=== PATIENT | male | born 1950 | race Caucasian/White ===

== ENCOUNTER 2018-01-05 10:33 | Day surgery (SDC) | payer MEDICARE, OTHER ==
[~2018-01-05 10:33] MED LIST: Lactated Ringers 1,000 ML IV SCH; Sodium Chloride 0.9% 5 ML Syringe FLUSH PRN
[2018-01-05] MEDS ORDERED: Propofol 200 MG/20 ML SDV ONE (11:08)
[2018-01-05] MEDS ORDERED: fentaNYL 100 MCG/2 ML SDV ONE (11:08)
[2018-01-05] MEDS ORDERED: Midazolam 1 MG/ML 2 ML SDV ONE (11:08)
[2018-01-05] MEDS ORDERED: Midazolam 1 MG/ML 2 ML SDV IV ONE (12:14)
[2018-01-05] MEDS ORDERED: fentaNYL 100 MCG/2 ML SDV IV ONE (12:14)
[2018-01-05] MEDS ORDERED: Propofol 200 MG/20 ML SDV IV ONE (12:14)
--- NOTE | 2018-01-05 13:02 | PCM.PRNOTE ---
- Free Text/Narrative Note: INFORMED CONSENT: Patient is here today for elective colonoscopy. All aspects of this procedure have been discussed with the patient. All possible complications also, including possibility of perforation, infection, pain, bleeding and unknown complications. In the event of perforation patient may need to have abdominal exploration, colon resection, colostomy and even was discussed. Anesthetic complications were handled by anesthesia department. The patient understands fully well. Patient did not have any further questions for me at the end of my interview. The patient wishes for me to proceed. PREOPERATIVE DIAGNOSIS/INDICATIONS: [I in the emergency anemia] POSTOPERATIVE DIAGNOSIS: [A few diverticula were seen but otherwise negative colonoscopy.] INSTRUMENT USED: Olympus videocolonoscope. ASA CLASSIFICATION: [2] ANESTHESIA: Continuous EKG, oximetry and intermittent blood pressure and respiratory monitoring were performed throughout the procedure. IV Versed and Fentanyl were administered. PROCEDURE PERFORMED: Colonoscopy POSITIONS OF PATIENT: Left lateral. RECTUM: Normal. SIGMOID COLON: A few diverticuli were seen without any complication.. DESCENDING COLON: Normal. SPLENIC FLEXURE: Normal. TRANSVERSE COLON: Normal. HEPATIC FLEXURE: Normal. ASCENDING COLON: Normal. CECUM: Normal. ILEOCECAL VALVE: Normal. BIOPSY: None. TOLERANCE: Excellent. COMPLICATIONS: None.
== END 2018-01-05 15:00 | disposition home or self-care (01) ==
LOC: KA.SDS 10:33
PROVIDERS: ATTEND Family Medicine
DX: K57.30 Diverticulosis of large intestine without perforation or abscess without bleeding (principal); D50.8 Other iron deficiency anemias; J44.9 Chronic obstructive pulmonary disease, unspecified; I10 Essential (primary) hypertension; K58.0 Irritable bowel syndrome with diarrhea; E78.2 Mixed hyperlipidemia; M19.029 Primary osteoarthritis, unspecified elbow; Z79.82 Long term (current) use of aspirin; Z79.1 Long term (current) use of non-steroidal anti-inflammatories (NSAID); Z79.899 Other long term (current) drug therapy; E03.9 Hypothyroidism, unspecified
CPT/HCPCS: 00811; J2250; J2704; J3010; J7120

== ENCOUNTER 2020-11-25 20:28 | Emergency (ER) | payer MEDICARE, OTHER ==
[2020-11-25] MEDS ORDERED: Sodium Chloride 0.9% 10 ML Syringe FLUSH PRN (20:29)
--- NOTE | 2020-11-25 20:48 | EDM.PDOC ---
ED HPI GENERAL MEDICAL PROBLEM - General Chief Complaint: Neuro Symptoms/Deficits Stated Complaint: POSSIBLE CVA Time Seen by Provider: 11/25/20 20:34 Source of Information: Reports: Patient, EMS, Family History Limitations: Reports: No Limitations - History of Present Illness INITIAL COMMENTS - FREE TEXT/NARRATIVE: 70 YO WM PRESENTS TO ER BY EMS WITH RIGHT ARM WEAKNESS WHICH BEGAN 2PM TODAY. PT REPORTS HE WAS WORKING AND BEGAN TO NOTICE SOME WEAKNESS AND INABILITY TO SUPINATE HIS RIGHT ARM. PT REPORTS HE CONTINUED TO WORK UNTIL AROUND 5PM WHEN HE STATES THE ARM WEAKNESS BECAME WORSE AND HE FELT UNSTEADY ON HIS FEET. PT DENIES ANY FACIAL WEAKNESS OR DROOP, NO SLURRED SPEECH, NO HEADACHE, NO DIZZINESS, NO CHEST PAIN OR SHORTNESS OF BREATH. PT DENIES FEVER/CHILLS, NO RECENT ILLNESSES. PT ALERT AND ORIENTED X 4; GCS-15. PT DENIES HEAD OR NECK INJURY. Onset: Today Onset Date: 11/25/20 Onset Time: 14:00 Duration: Hour(s): (6) Location: Reports: Upper Extremity, Right Severity: Moderate Improves with: Reports: None Worsens with: Reports: None Associated Symptoms: Reports: No Other Symptoms, Weakness. Denies: Confusion, Chest Pain, Diaphoresis, Fever/Chills, Headaches, Nausea/Vomiting, Shortness of Breath, Syncope - Related Data Allergies Allergy/AdvReac Type Severity Reaction Status Date / Time No Known Drug Allergies Allergy Cannot Verified 11/25/20 20:51 Remember Home Meds: Home Meds *Aloe Vera Juice 4 oz PO DAILY 01/04/18 [History] Acetaminophen 500 - 1,000 mg PO Q4H PRN 01/04/18 [History] Ascorbic Acid 250 mg PO DAILY 01/04/18 [History] Aspirin 81 mg PO DAILY 01/04/18 [History] Cholecalciferol (Vitamin D3) [Vitamin D3] 1,000 unit PO DAILY 01/04/18 [History] Colestipol [Colestipol HCl] 1 gm PO BID 01/04/18 [History] Dicyclomine [Bentyl] 20 mg PO TID 01/04/18 [History] Fluticasone Propionate [Flonase] 2 spray NASBOTH DAILY 01/04/18 [History] Glucosam/Chondr/Collagn/Hyalur [Glucosamine & Chondroitin Cap] 1 each PO DAILY 01/04/18 [History] Ipratropium [Atrovent 0.06% Nasal [place]] 2 spray NASBOTH TID PRN 01/04/18 [History] Iron Polysaccharides Complex [Ferrex 150] 150 mg PO DAILY 01/04/18 [History] L.acidoph,Paracasei, B.lactis [Probiotic] 1 each PO DAILY 01/04/18 [History] Lisinopril 10 mg PO DAILY 01/04/18 [History] Metoprolol Succinate [Toprol XL] 25 mg PO DAILY 01/04/18 [History] Naproxen Sodium [Aleve] 220 - 440 mg PO DAILY PRN 01/04/18 [History] Psyllium Husk [Metamucil] 1 tbsp PO DAILY 01/04/18 [History] guaiFENesin [Mucinex] 600 mg PO BID PRN 01/04/18 [History] Past Medical History Respiratory History: Reports: SOB Gastrointestinal History: Reports: Irritable Bowel Syndrome Musculoskeletal History: Reports: Back Pain, Chronic, Osteoarthritis Neurological History: Reports: Migraines Hematologic History: Reports: Iron Deficiency Dermatologic History: Reports: Psoriasis Social & Family History - Caffeine Use Caffeine Use: Reports: None ED ROS GENERAL - Review of Systems Review Of Systems: See Below Constitutional: Reports: No Symptoms, Weakness HEENT: Reports: No Symptoms Respiratory: Reports: No Symptoms Cardiovascular: Reports: No Symptoms Endocrine: Reports: No Symptoms GI/Abdominal: Reports: No Symptoms : Reports: No Symptoms Musculoskeletal: Reports: No Symptoms Skin: Reports: No Symptoms Neurological: Reports: Difficulty Walking, Weakness. Denies: Trouble Speaking Psychiatric: Reports: No Symptoms Hematologic/Lymphatic: Reports: No Symptoms Immunologic: Reports: No Symptoms ED EXAM, NEURO - Physical Exam Exam: See Below Exam Limited By: No Limitations General Appearance: Alert, WD/WN, No Apparent Distress Eye Exam: Bilateral Eye: EOMI, PERRL Throat/Mouth: Normal Inspection, Normal Lips, Normal Teeth, Normal Gums, Normal Oropharynx, Normal Voice, No Airway Compromise Head Exam: Atraumatic, Normocephalic Neck: Normal Inspection, Supple, Non-Tender, Full Range of Motion Respiratory/Chest: No Respiratory Distress, Lungs Clear, Normal Breath Sounds, No Accessory Muscle Use, Chest Non-Tender Cardiovascular: Normal Peripheral Pulses, Regular Rate, Rhythm, No Edema, No Gallop, No JVD, No Murmur, No Rub GI/Abdominal: Normal Bowel Sounds, Soft, Non-Tender, No Organomegaly, No Dist ention, No Abnormal Bruit, No Mass Neurological: Alert, Normal Mood/Affect, Normal Dorsiflexion, CN II-XII Intact, Normal Plantar Flexion, Normal Reflexes, No Motor/Sensory Deficits, Oriented x 3, Straight Leg Raise (L), Straight Leg Raise (R). No: Abnormal Gait, Ataxia Back Exam: Normal Inspection, Full Range of Motion, NT Extremities: Normal Inspection, Normal Range of Motion, Non-Tender, No Pedal Edema, Normal Capillary Refill Psychiatric: Normal Affect, Normal Mood Skin Exam: Warm, Dry, Intact, Normal Color, No Rash #1 Interpretation EKG Date: 11/25/20 Time: 20:48 Rhythm: NSR Rate (Beats/Min): 66 [place]: Normal P-Wave: Present QRS: Normal ST-T: Normal QT: Normal Comparison: NA - No Prior EKG Course - Vital Signs Last Recorded V/S: Last Vital Signs Temp 97.5 F 11/25/20 20:42 Pulse 67 11/25/20 20:42 Resp 20 11/25/20 20:42 BP 156/99 H 11/25/20 20:42 Pulse Ox 100 11/25/20 20:42 - Orders/Labs/Meds Orders: Active Orders 24 hr Category Date Time Status EKG Documentation Completion [RC] ASDIRECTED Care 11/25/20 20:31 Ordered Peripheral IV Care [RC] . DIRECTED Care 11/25/20 20:30 Ordered Heparin Sodium/D5W 250 ml Med 11/25/20 21:45 Ordered IV TITRATE Sodium Chloride 0.9% [Saline Flush] Med 11/25/20 20:29 Ordered 10 ml FLUSH Q8HR PRN Peripheral IV Insertion Adult [OM.PC] Routine Oth 11/25/20 20:29 Ordered EKG 12 Lead [EK] Stat Ther 11/25/20 20:29 Ordered Medication Orders Heparin Sodium/Dextrose () 250 mls @ 8.382 mls/hr IV TITRATE ZAMZAM; Protocol Last Admin: 11/25/20 21:52 Dose: 12.03 units/kg/hr, 8.4 mls/hr Documented by: Sodium Chloride (Saline Flush) 10 ml FLUSH Q8HR PRN PRN Reason: keep vein open Labs: Laboratory Tests 11/25/20 11/25/20 11/25/20 Range/Units 20:45 20:45 20:45 WBC 7.01 (5.00-10.00) 10^3/uL RBC 3.83 L (4.50-6.00) 10^6/uL Hgb 11.9 L (13.0-17.0) g/dL Hct 35.1 L (40.0-52.0) % MCV 91.6 (82.0-92.0) fL MCH 31.1 H (27.0-31.0) pg MCHC 33.9 (32.0-36.0) g/dL RDW 11.7 (11.5-14.5) % Plt Count 250 (150-400) 10^3/uL MPV 9.1 (7.4-10.4) fL Immature Gran % (Auto) 0.1 (0.0-5.0) % Neut % (Auto) 74.3 H (50.0-70.0) % Lymph % (Auto) 18.3 L (20.0-40.0) % Petroleum % (Auto) 6.6 (2.0-8.0) % Eos % (Auto) 0.4 L (1.0-3.0) % Baso % (Auto) 0.3 (0.0-1.0) % Neut # (Auto) 5.21 (2.50-7.00) 10^3/uL Lymph # (Auto) 1.28 (1.00-4.00) 10^3/uL Petroleum # (Auto) 0.46 (0.10-0.80) 10^3/uL Eos # (Auto) 0.03 L (0.10-0.30) 10^3/uL Baso # (Auto) 0.02 (0.00-0.10) 10^3/uL Immature Gran # (Auto) 0.01 (0.00-0.50) 10^3/uL PT 9.9 (9.2-11.2) SEC INR 1.0 (0.9-1.1) APTT 24.8 (22.8-31.4) SEC Sodium 136 (136-145) mmol/L Potassium 4.2 (3.5-5.1) mmol/L Chloride 100 (98-107) mmol/L Carbon Dioxide 27.2 (21.0-32.0) mmol/L Anion Gap 13.0 (5-15) mmol/L BUN 22 H (7-18) mg/dL Creatinine 1.07 (0.51-1.17) mg/dL Est Cr Clr Drug Dosing 64.38 mL/min Estimated GFR (MDRD) > 60 mL/min Glucose 121 (70-140) mg/dL Calcium 9.0 (8.7-10.3) mg/dL Total Bilirubin 0.3 (0.2-1.0) mg/dL AST 28 (15-37) U/L ALT 22 (14-63) U/L Alkaline Phosphatase 49 (46-116) U/L Creatine Kinase 352 H* (26-276) U/L CK-MB (CK-2) 10.52 H* (0.00-3.60) ng/mL Troponin I 0.108 H* (0.000-0.056) ng/mL Total Protein 7.3 (6.4-8.2) g/dL Albumin 3.95 (3.40-5.00) g/dL Meds: Medications Generic Name Dose Route Start Last Admin Trade Name Tasha PRN Reason Stop Dose Admin Heparin Sodium/Dextrose 250 mls @ 8.382 mls/hr 11/25/20 21:45 11/25/20 21:52 IV 12.03 units/kg/hr TITRATE ZAMZAM 8.4 mls/hr Administration Protocol 12 UNITS/KG/HR Sodium Chloride 10 ml 11/25/20 20:29 Saline Flush FLUSH Q8HR PRN keep vein open Discontinued Medications Generic Name Dose Route Start Last Admin Trade Name Freq PRN Reason Stop Dose Admin Aspirin 243 mg 11/25/20 21:24 11/25/20 21:37 Aspirin PO 11/25/20 21:25 243 mg ONETIME ONE Administration Aspirin Confirm 11/25/20 21:25 11/25/20 21:38 Aspirin Administered 11/25/20 21:26 Not Given Dose 243 mg .ROUTE .STK-MED ONE Heparin Sodium (Porcine) 4,000 units 11/25/20 21:50 11/25/20 21:51 Heparin Sodium IVPUSH 11/25/20 21:51 4,000 units .BOLUS ONE Administration - Radiology Interpretation Free Text/Narrative:: CT HEAD-SMALL VESSEL DISEASE NO CVA CXR- NAD Departure - Departure Time of Disposition: 21:36 Disposition: DC/Tfer to Acute Hospital 02 Condition: Serious Clinical Impression: Non-STEMI (non-ST elevated myocardial infarction), TIA (transient ischemic attack) - Discharge Information Referrals: Jeanne Quach MD [Primary Care Provider] - Forms: ED Department Discharge, Interfacility Transfer SERGE Sepsis Event Note (ED) - Focused Exam Vital Signs: Vital Signs Temp Pulse Resp BP Pulse Ox 11/25/20 20:42 97.5 F 67 20 156/99 H 100 - My Orders Last 24 Hours: My Active Orders 11/25/20 20:29 Sodium Chloride 0.9% [Saline Flush] 10 ml FLUSH Q8HR PRN Peripheral IV Insertion Adult [OM.PC] Routine EKG 12 Lead [EK] Stat 11/25/20 20:30 Peripheral IV Care [RC] . DIRECTED 11/25/20 20:31 EKG Documentation Completion [RC] ASDIRECTED 11/25/20 21:45 Heparin Sodium/D5W 250 ml IV TITRATE - Assessment/Plan Last 24 Hours: My Active Orders 11/25/20 20:29 Sodium Chloride 0.9% [Saline Flush] 10 ml FLUSH Q8HR PRN Peripheral IV Insertion Adult [OM.PC] Routine EKG 12 Lead [EK] Stat 11/25/20 20:30 Peripheral IV Care [RC] . DIRECTED 11/25/20 20:31 EKG Documentation Completion [RC] ASDIRECTED 11/25/20 21:45 Heparin Sodium/D5W 250 ml IV TITRATE Assessment:: 1. RIGHT ARM WEAKNESS-IMPROVING 2. TIA VS CVA 3. PERIPHERAL NERVE VS SMALL VESSEL Plan: 1. DISCUSSED WITH NEUROLOGIST-DR FORBES WHO DOESN'T BELIEVE SYMPTOMS ARE LARGE VESSEL CONCERN. NOT A TPA CANDIDATE AT THIS TIME. RECOMMENDED TO OBSERVE OVERNIGHT-TRANSFER FOR WORSENING NEUROLOGIC SYMPTOMS. RECOMMENDING NONEMERGENT MRI/MRA OF BRAIN AND CERVICAL SPINE OUTPATIENT. 2. TROP I AND CARDIAC MARKERS WERE ELEVATED PROMPTING REASSESSMENT FOR TRANSFER- DISCUSSED WITH DR CHACKO WHO AGREED AND ACCEPTED TRANSFER. START HEPARIN GTT AND TRANSFER TO [facility] 3. SUPPORTIVE CARE
--- NOTE | 2020-11-25 20:55 | CT ---
[id number] CT/CT Head Stroke Protocol EXAM: CT Head Stroke Protocol CLINICAL DATA: WEAKNESS COMPARISON STUDY: None FINDINGS: No intracranial hemorrhage, extra-axial fluid collection, mass, or acute ischemia. No hydrocephalus. Areas of hypodensity in the subcortical and periventricular white matter of both cerebral hemispheres. Findings are nonspecific and commonly seen as sequela of chronic small vessel disease. Dilated perivascular space in the left inferior basal ganglia. Calvarium intact. Paranasal sinuses and mastoid air cells are clear. IMPRESSION: No acute intracranial findings. Results relayed to Hong Freeman at time of dictation. Lalo Blanchard MD 11/25/202053 Thank you for allowing us to participate in the care of your patient.
--- NOTE | 2020-11-25 21:19 | CR ---
[id number] RAD/RAD Chest PA or AP 1V EXAM: RAD Chest PA or AP 1V INDICATION: WEAKNESS COMPARISON: None. DISCUSSION: Cardiomediastinal silhouette is normal in size and contour. Lungs are clear. No pleural effusion or pneumothorax. Chronic healed left-sided rib fractures. IMPRESSION: No acute findings. Lalo Blanchard MD 11/25/20 [id number] Thank you for allowing us to participate in the care of your patient.
[2020-11-25 21:20] LABS: CHLORIDE,CL 100 mmol/L (98-107); PTT,PARTIAL THROMBOPLSTIN TIME 24.8 SEC (22.8-31.4); SODIUM,NA 136 mmol/L (136-145)
[2020-11-25] MEDS ORDERED: Aspirin 81 MG Tab.Chew PO ONE (21:24)
[2020-11-25] MEDS ORDERED: Aspirin 81 MG Tab.Chew ONE (21:25)
[2020-11-25] MEDS ORDERED: Heparin Sodium/D5W 250 ML IV SCH (21:45)
[2020-11-25] MEDS ORDERED: Heparin Sodium 5,000 Units/ML Vial IVPUSH ONE (21:50)
[2020-11-25] MEDS ORDERED: Heparin Sodium/D5W 250 ML ONE (22:17)
[2020-11-25 22:52] VITALS: BP 154/81; PULSE 88
== END 2020-11-25 22:05 ==
LOC: KA.ED 20:28
DX: I21.4 Non-ST elevation (NSTEMI) myocardial infarction (principal); G45.9 Transient cerebral ischemic attack, unspecified; Z79.82 Long term (current) use of aspirin; Z79.899 Other long term (current) drug therapy
CPT/HCPCS: 36415; 70450; 71045; 80053; 82550; 82553; 84484; 85025; 85610; 85730; 93005; 96374; 99284; 99285-25; A9270-GY; J1644

== ENCOUNTER 2021-09-03 16:58 | Observation (INO) | payer MEDICARE, OTHER ==
[2021-09-03] MEDS ORDERED: Sodium Chloride 0.9% 10 ML Syringe FLUSH PRN (17:01)
--- NOTE | 2021-09-03 17:08 | EDM.PDOC ---
ED HPI GENERAL MEDICAL PROBLEM - General Chief Complaint: General Stated Complaint: generalized weakness Time Seen by Provider: 09/03/21 17:08 Source of Information: Reports: Patient, EMS, Provider History Limitations: Reports: No Limitations - History of Present Illness INITIAL COMMENTS - FREE TEXT/NARRATIVE: 71 YO WM PRESENTS TO ER BY EMS FROM [facility] WITH COMPLAINTS OF GENERALIZED WEAKNESS AND FATIGUE WHICH BECAME MORE PROFOUND TODAY. PT REPORTS RECENT URI SYMPTOMS OVER THE LAST 2-3 DAYS WITH MILD COUGH/CONGESTION BUT DENIES SHORTNESS OF BREATH. PT ALSO REPORTS SOME LOOSE STOOLS OVER THE LAST 2 WEEKS BUT DENIES ANY BLOODY STOOLS OR FREQUENT BM. PT DENIES FEVER/CHILLS, NO NAUSEA/VOMITING, NO DIZZINESS OR CHEST PAIN. PT DENIES SLURRED SPEECH, NO ATAXIA, NO FACIAL DROOP OR UNILATERAL WEAKNESS. PT ALERT AND ORIENTED X 4 WITH [facility]CS-15. PT HAS BEEN IMMUNIZED FOR COVID AND HAD A NEGATIVE COVID ANTIGEN TEST IN CLINIC TODAY. Onset: Today Duration: Waxing/Waning Location: Reports: Generalized Severity: Mild Improves with: Reports: Rest Worsens with: Reports: Movement Associated Symptoms: Reports: No Other Symptoms, Cough, Weakness. Denies: Confusion, Chest Pain, Fever/Chills, Nausea/Vomiting, Shortness of Breath, Syncope - Related Data Allergies Allergy/AdvReac Type Severity Reaction Status Date / Time No Known Drug Allergies Allergy Cannot Verified 11/25/20 20:51 Remember Home Meds: Home Meds *Aloe Vera Juice 4 oz PO DAILY 01/04/18 [History] Ascorbic Acid 250 mg PO DAILY 01/04/18 [History] Aspirin 81 mg PO DAILY 01/04/18 [History] Cholecalciferol (Vitamin D3) [Vitamin D3] 1,000 unit PO DAILY 01/04/18 [History] Colestipol [Colestipol HCl] 1 gm PO BID 01/04/18 [History] Dicyclomine [Bentyl] 20 mg PO BID 01/04/18 [History] Fluticasone Propionate [Flonase] 2 spray NASBOTH BEDTIME 01/04/18 [History] Lisinopril 5 mg PO DAILY 01/04/18 [History] Metoprolol Succinate [Toprol XL] 50 mg PO DAILY 01/04/18 [History] Diclofenac Sodium [Voltaren] 75 mg PO BID 09/03/21 [History] Docusate Sodium 100 mg PO BEDTIME PRN 09/03/21 [History] Ferrous Sulfate [Iron] 325 mg PO Q48H 09/03/21 [History] Finasteride 2.5 mg PO DAILY 09/03/21 [History] Ibuprofen 200 mg PO Q4H PRN 09/03/21 [History] Loperamide [Imodium] 2 mg PO ASDIRECTED PRN 09/03/21 [History] Melatonin 3 mg PO BEDTIME PRN 09/03/21 [History] Multivitamin with Minerals [Multiple Vitamin] 1 tab PO DAILY 09/03/21 [History] Nitroglycerin 0.4 mg SL Q5M PRN 09/03/21 [History] Sodium Chloride [Saline Nasal [place]] 2 sprays NASBOTH Q2H PRN 09/03/21 [History] atorvaSTATin [Lipitor] 40 mg PO BEDTIME 09/03/21 [History] miSOPROStoL [Misoprostol] 100 mcg PO BID 09/03/21 [History] Past Medical History HEENT History: Reports: Other (See Below) Other HEENT History: glasses Cardiovascular History: Reports: Hypertension Respiratory History: Reports: SOB, Other (See Below) Other Respiratory History: prn inhaler Gastrointestinal History: Reports: Irritable Bowel Syndrome Musculoskeletal History: Reports: Back Pain, Chronic, Osteoarthritis Neurological History: Reports: Migraines, Other (See Below) Other Neuro History: R hand/forearm weakness today Endocrine/Metabolic History: Reports: Other (See Below) Other Endocrine/Metabolic History: had been on synthroid - reports not now Hematologic History: Reports: Iron Deficiency Dermatologic History: Reports: Psoriasis Social & Family History - Caffeine Use Caffeine Use: Reports: None ED ROS GENERAL - Review of Systems Review Of Systems: See Below Constitutional: Reports: Weakness, Fatigue HEENT: Reports: Rhinitis Respiratory: Reports: Cough Cardiovascular: Reports: No Symptoms Endocrine: Reports: No Symptoms GI/Abdominal: Reports: Diarrhea : Reports: No Symptoms Musculoskeletal: Reports: No Symptoms Skin: Reports: No Symptoms Neurological: Reports: No Symptoms, Weakness. Denies: Confusion, Dizziness, Headache, Numbness, Paresthesia, Pre-Existing Deficit, Trouble Speaking, Difficulty Walking, Change in Speech, Gait Disturbance Psychiatric: Reports: No Symptoms Hematologic/Lymphatic: Reports: No Symptoms Immunologic: Reports: No Symptoms ED EXAM, GENERAL - Physical Exam Exam: See Below Exam Limited By: No Limitations General Appearance: Alert, WD/WN, No Apparent Distress Throat/Mouth: Normal Inspection, Normal Lips, Normal Teeth, Normal Gums, Normal Oropharynx, Normal Voice, No Airway Compromise Head: Atraumatic, Normocephalic Neck: Normal Inspection, Supple, Non-Tender, Full Range of Motion Respiratory/Chest: No Respiratory Distress, Lungs Clear, Normal Breath Sounds, No Accessory Muscle Use, Chest Non-Tender Cardiovascular: Normal Peripheral Pulses, Regular Rate, Rhythm, No Edema, No Gallop, No JVD, No Murmur, No Rub GI/Abdominal: Normal Bowel Sounds, Soft, Non-Tender, No Organomegaly, No Distention, No Abnormal Bruit, No Mass Back Exam: Normal Inspection, Full Range of Motion, NT Extremities: Normal Inspection, Normal Range of Motion, Non-Tender, Normal Capillary Refill, No Pedal Edema Neurological: Alert, Oriented, CN II-XII Intact, Normal Cognition, Normal Gait, No Motor/Sensory Deficits Psychiatric: Normal Affect, Normal Mood Skin Exam: Warm, Dry, Intact, Normal Color, No Rash Lymphatic: No Adenopathy #1 Interpretation EKG Date: 09/03/21 Time: 17:25 Rhythm: NSR Rate (Beats/Min): [address] [place]: Normal P-Wave: Present QRS: Normal ST-T: Normal QT: Normal Comparison: NA - No Prior EKG Course - Vital Signs Last Recorded V/S: Last Vital Signs Temp 97.2 F 09/03/21 17:23 Pulse 69 09/03/21 17:23 Resp 16 09/03/21 17:23 BP 125/69 09/03/21 17:23 Pulse Ox 100 09/03/21 17:23 - Orders/Labs/Meds Orders: Active Orders 24 hr Category Date Time Status Peripheral IV Care [RC] . DIRECTED Care 09/03/21 17:03 Active Heparin Sodium/D5W 250 ml Med 09/03/21 18:30 Ordered IV TITRATE Sodium Chloride 0.9% [Saline Flush] Med 09/03/21 17:01 Active 10 ml FLUSH Q8HR PRN Peripheral IV Insertion Adult [OM.PC] Routine Oth 09/03/21 17:01 Ordered EKG 12 Lead [EK] Stat Ther 09/03/21 17:01 Ordered Medication Orders Heparin Sodium/Dextrose () 250 mls @ 7.893 mls/hr IV TITRATE ZAMZAM; Protocol Sodium Chloride (Sodium Chloride 0.9% 10 Ml Syringe) 10 ml FLUSH Q8HR PRN PRN Reason: keep vein open Last Admin: 09/03/21 18:06 Dose: 10 ml Documented by: MARCELA Labs: Laboratory Tests 09/03/21 09/03/21 09/03/21 Range/Units 17:10 17:10 17:20 WBC 11.12 H (5.00-10.00) 10^3/uL RBC 3.79 L (4.50-6.00) 10^6/uL Hgb 11.4 L (13.0-17.0) g/dL Hct 34.2 L (40.0-52.0) % MCV 90.2 (82.0-92.0) fL MCH 30.1 (27.0-31.0) pg MCHC 33.3 (32.0-36.0) g/dL RDW 13.0 (11.5-14.5) % Plt Count 108 L D (150-400) 10^3/uL MPV 10.9 H (7.4-10.4) fL Immature Gran % (Auto) 0.4 (0.0-5.0) % Neut % (Auto) 77.3 H (50.0-70.0) % Lymph % (Auto) 8.5 L (20.0-40.0) % [place] % (Auto) 6.6 (2.0-8.0) % Eos % (Auto) 6.8 H (1.0-3.0) % Baso % (Auto) 0.4 (0.0-1.0) % Neut # (Auto) 8.59 H (2.50-7.00) 10^3/uL Lymph # (Auto) 0.95 L (1.00-4.00) 10^3/uL [place] # (Auto) 0.73 (0.10-0.80) 10^3/uL Eos # (Auto) 0.76 H (0.10-0.30) 10^3/uL Baso # (Auto) 0.05 (0.00-0.10) 10^3/uL Immature Gran # (Auto) 0.04 (0.00-0.50) 10^3/uL Platelet Estimate Decreased Sodium 134 L (136-145) mmol/L Potassium 4.5 (3.5-5.1) mmol/L Chloride 99 (98-107) mmol/L Carbon Dioxide 26.2 (21.0-32.0) mmol/L Anion Gap 13.3 (5-15) mmol/L BUN 18 (7-18) mg/dL Creatinine 1.03 (0.51-1.17) mg/dL Est Cr Clr Drug Dosing 62.08 mL/min Estimated GFR (MDRD) > 60 mL/min Glucose 93 (70-140) mg/dL Lactic Acid 1.1 (0.4-2.0) mmol/L Calcium 8.3 L (8.7-10.3) mg/dL Total Bilirubin 0.4 (0.2-1.0) mg/dL AST 22 (15-37) U/L ALT 23 (14-63) U/L Alkaline Phosphatase 80 (46-116) U/L Troponin I High Sens 1294.100 H* (0-76.000) pg/mL Total Protein 7.1 (6.4-8.2) g/dL Albumin 2.77 L (3.40-5.00) g/dL Specimen Type Urine Color (YELLOW) Urine Appearance (CLEAR) Urine pH (5.0-9.0) Ur Specific [place] (1.005-1.030) Urine Protein (NEGATIVE) mg/dL Urine Glucose (UA) (NEGATIVE) mg/dL Urine Ketones (NEGATIVE) mg/dL Urine Occult Blood (NEGATIVE) Urine Nitrite (NEGATIVE) Urine Bilirubin (NEGATIVE) Urine Urobilinogen (0.2-1.0) E.U./dL Ur Leukocyte Esterase (NEGATIVE) Urine RBC (0-5) /HPF Urine WBC (0-5) /HPF Ur Epithelial Cells /LPF Urine Bacteria (NONE TO FEW) /HPF Urine Mucus (NEGATIVE) /LPF 09/03/21 Range/Units 17:57 WBC (5.00-10.00) 10^3/uL RBC (4.50-6.00) 10^6/uL Hgb (13.0-17.0) g/dL Hct (40.0-52.0) % MCV (82.0-92.0) fL MCH (27.0-31.0) pg MCHC (32.0-36.0) g/dL RDW (11.5-14.5) % Plt Count (150-400) 10^3/uL MPV (7.4-10.4) fL Immature Gran % (Auto) (0.0-5.0) % Neut % (Auto) (50.0-70.0) % Lymph % (Auto) (20.0-40.0) % [place] % (Auto) (2.0-8.0) % Eos % (Auto) (1.0-3.0) % Baso % (Auto) (0.0-1.0) % Neut # (Auto) (2.50-7.00) 10^3/uL Lymph # (Auto) (1.00-4.00) 10^3/uL [place] # (Auto) (0.10-0.80) 10^3/uL Eos # (Auto) (0.10-0.30) 10^3/uL Baso # (Auto) (0.00-0.10) 10^3/uL Immature Gran # (Auto) (0.00-0.50) 10^3/uL Platelet Estimate Sodium (136-145) mmol/L Potassium (3.5-5.1) mmol/L Chloride (98-107) mmol/L Carbon Dioxide (21.0-32.0) mmol/L Anion Gap (5-15) mmol/L BUN (7-18) mg/dL Creatinine (0.51-1.17) mg/dL Est Cr Clr Drug Dosing mL/min Estimated GFR (MDRD) mL/min Glucose (70-140) mg/dL Lactic Acid (0.4-2.0) mmol/L Calcium (8.7-10.3) mg/dL Total Bilirubin (0.2-1.0) mg/dL AST (15-37) U/L ALT (14-63) U/L Alkaline Phosphatase (46-116) U/L Troponin I High Sens (0-76.000) pg/mL Total Protein (6.4-8.2) g/dL Albumin (3.40-5.00) g/dL Specimen Type Urinvoid Urine Color Yellow (YELLOW) Urine Appearance Clear (CLEAR) Urine pH 6.5 (5.0-9.0) Ur Specific [place] 1.015 (1.005-1.030) Urine Protein Negative (NEGATIVE) mg/dL Urine Glucose (UA) Negative (NEGATIVE) mg/dL Urine Ketones Negative (NEGATIVE) mg/dL Urine Occult Blood Negative (NEGATIVE) Urine Nitrite Negative (NEGATIVE) Urine Bilirubin Negative (NEGATIVE) Urine Urobilinogen 0.2 (0.2-1.0) E.U./dL Ur Leukocyte Esterase Negative (NEGATIVE) Urine RBC 0-5 (0-5) /HPF Urine WBC Not seen (0-5) /HPF Ur Epithelial Cells Occasional /LPF Urine Bacteria Not seen (NONE TO FEW) /HPF Urine Mucus Occasional H (NEGATIVE) /LPF Meds: Medications Generic Name Dose Route Start Last Admin Trade Name Freq PRN Reason Stop Dose Admin Heparin Sodium/Dextrose 250 mls @ 7.893 mls/hr 09/03/21 18:30 IV TITRATE ZAMZAM Protocol 12 UNITS/KG/HR Sodium Chloride 10 ml 09/03/21 17:01 09/03/21 18:06 Sodium Chloride 0.9% 10 Ml Syringe FLUSH 10 ml Q8HR PRN Administration keep vein open Discontinued Medications Generic Name Dose Route Start Last Admin Trade Name Freq PRN Reason Stop Dose Admin Heparin Sodium (Porcine) 4,000 units 09/03/21 18:29 Heparin Sodium 5,000 Units/Ml Vial IVPUSH 09/03/21 18:30 .BOLUS ONE Sodium Chloride 1,000 mls @ 999 mls/hr 09/03/21 17:13 09/03/21 18:05 Normal Saline IV 09/03/21 18:13 999 mls/hr .BOLUS ONE Administration - Radiology Interpretation Free Text/Narrative:: CT HEAD- NAD CXR- NO PNEUMONIA, NO EDEMA, NAD - Re-Assessments/Exams Free Text/Narrative Re-Assessment/Exam: 09/03/21 18:31 PT DENIES ANY CHEST PAIN, EXERCISE INTOLERANCE, NO EDEMA, NO DIZZINESS OR DIAPHORESIS. PT DENIES ANY CHEST PAIN SYMPTOMS OVER THE LAST WEEK. DISCUSSED ELEVATED TROP I AND NEED FOR HIGHER LEVEL OF CARE. PT AGREEABLE TO TRANSFER @1820 CALLED [facility]- REQUESTED TO HOLD PATIENT UNTIL AM OR FIND ANOTHER FACI LITY. 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- CALLED BACK- CAN'T ACCEPT DUE TO PROFESSIONAL [employer] BEING DOWN CALL PLACED TO [facility]- NO BEDS AVAILABLE CALL PLACED TO [facility]- NO BEDS AVAILABLE 09/03/21 18:58 09/03/21 19:02 Departure - Departure Time of Disposition: 19:15 Disposition: Refer to Observation Condition: Serious Clinical Impression: Non-STEMI (non-ST elevated myocardial infarction) - Discharge Information Forms: ED Department Discharge Sepsis Event Note (ED) - Focused Exam Vital Signs: Vital Signs Temp Pulse Resp BP Pulse Ox 09/03/21 17:23 97.2 F 69 16 125/69 100 - My Orders Last 24 Hours: My Active Orders 09/03/21 17:01 Sodium Chloride 0.9% [Saline Flush] 10 ml FLUSH Q8HR PRN Peripheral IV Insertion Adult [OM.PC] Routine EKG 12 Lead [EK] Stat 09/03/21 17:03 Peripheral IV Care [RC] . DIRECTED 09/03/21 18:30 Heparin Sodium/D5W 250 ml IV TITRATE - Assessment/Plan Last 24 Hours: My Active Orders 09/03/21 17:01 Sodium Chloride 0.9% [Saline Flush] 10 ml FLUSH Q8HR PRN Peripheral IV Insertion Adult [OM.PC] Routine EKG 12 Lead [EK] Stat 09/03/21 17:03 Peripheral IV Care [RC] . DIRECTED 09/03/21 18:30 Heparin Sodium/D5W 250 ml IV TITRATE Assessment:: 1. NONSTEMI 2. GENERALIZED WEAKNESS Plan: 1. UNABLE TRANSFER TO DUE TO NO BED AVAILABILITY - DISCUSSED CASE WITH DR PYLE WHO ACCEPTED FOR OBS UNTIL PT CAN BE TRANSFERRED IN AM 2. HEPARIN GTT 3. SUPPORTIVE CARE 4. NITRO PRN- PT CURRENTLY CHEST PAIN FREE
[2021-09-03] MEDS ORDERED: Sodium Chloride 0.9% 1,000 ML IV ONE (17:13)
--- NOTE | 2021-09-03 17:32 | CT ---
[id number] CT/CT Head WO IV EXAM: CT Head WO IV CLINICAL DATA: CHANGE IN MENTAL STATUS COMPARISON: CORRELATION IS MADE WITH NOVEMBER 25, 2020 FINDINGS: The patient has had a previous left frontal infarction. Consider further studies if needed. There is no evidence of new infarction There is no mass or mass effect. There is no hemorrhage or hydrocephalus. There are no extra-axial fluid collections. IMPRESSION: NO PLAIN CT EVIDENCE OF ACUTE INTRACRANIAL PROCESS. Honorio Snow MD 09/03/21 1869 Thank you for allowing us to participate in the care of your patient.
--- NOTE | 2021-09-03 17:33 | CR ---
[id number] RAD/RAD Chest PA or AP 1V EXAM: SINGLE VIEW CHEST. INDICATION: SHORTNESS OF BREATH COMPARISON: CORRELATION IS MADE WITH THE EXAM OF NOVEMBER 25, 2020 FINDINGS: The lungs are clear The cardiomediastinal contour is stable There is a loop recorder. IMPRESSION: NO PNEUMONIA OR EDEMA Honorio Snow MD 09/03/21 [phone] Thank you for allowing us to participate in the care of your patient.
[2021-09-03 18:12] LABS: ANION GAP 13.3 mmol/L (5-15); CHLORIDE,CL 99 mmol/L (98-107); SODIUM,NA 134 mmol/L (136-145)
[2021-09-03] MEDS ORDERED: Heparin Sodium 5,000 Units/ML Vial IVPUSH ONE (18:29)
[2021-09-03] MEDS ORDERED: Heparin Sodium/D5W 250 ML IV SCH ×2 (18:30→19:23)
[2021-09-03] MEDS ORDERED: Aspirin 81 MG Tab.Chew PO ONE (19:59)
[2021-09-03] MEDS ORDERED: atorvaSTATin 40 MG Tab PO ONE (21:05)
[2021-09-03] MEDS ORDERED: Clopidogrel 75 MG Tab PO ONE (21:05)
[2021-09-03] MEDS ORDERED: Metoprolol Succinate 25 MG Tab.ER PO ONE (21:06)
[2021-09-04 09:20] LABS: ANION GAP 10.7 mmol/L (5-15); CHLORIDE,CL 101 mmol/L (98-107); SODIUM,NA 134 mmol/L (136-145)
[2021-09-04] MEDS ORDERED: Melatonin 3 MG Tab PO PRN (11:05)
--- NOTE | 2021-09-04 11:22 | PCM.HP.2 ---
H&P History of Present Illness - General Date of Service: 09/04/21 Admit Problem/Dx: Admission Diagnosis/Problem Admission Diagnosis/Problem Elevated troponin I level - Related Data Allergies/Adverse Reactions: Allergies Allergy/AdvReac Type Severity Reaction Status Date / Time No Known Drug Allergies Allergy Cannot Verified 11/25/20 20:51 Remember Home Medications: Home Meds *Aloe Vera Juice 4 oz PO DAILY 01/04/18 [History] Ascorbic Acid 250 mg PO DAILY 01/04/18 [History] Aspirin 81 mg PO DAILY 01/04/18 [History] Cholecalciferol (Vitamin D3) [Vitamin D3] 1,000 unit PO DAILY 01/04/18 [History] Colestipol [Colestipol HCl] 1 gm PO BID 01/04/18 [History] Dicyclomine [Bentyl] 20 mg PO BID 01/04/18 [History] Fluticasone Propionate [Flonase] 2 spray NASBOTH BEDTIME 01/04/18 [History] Lisinopril 5 mg PO DAILY 01/04/18 [History] Docusate Sodium 100 mg PO BEDTIME PRN 09/03/21 [History] Ferrous Sulfate [Iron] 325 mg PO Q48H 09/03/21 [History] Finasteride 2.5 mg PO DAILY 09/03/21 [History] Loperamide [Imodium] 2 mg PO ASDIRECTED PRN 09/03/21 [History] Melatonin 3 mg PO BEDTIME PRN 09/03/21 [History] Multivitamin with Minerals [Multiple Vitamin] 1 tab PO DAILY 09/03/21 [History] Nitroglycerin 0.4 mg SL Q5M PRN 09/03/21 [History] Sodium Chloride [Saline Nasal [place]] 2 sprays NASBOTH Q2H PRN 09/03/21 [History] atorvaSTATin [Lipitor] 40 mg PO BEDTIME 09/03/21 [History] Clopidogrel [Plavix] 75 mg PO DAILY tablet 09/04/21 [Rx] Metoprolol Succinate [Toprol XL] 12.5 mg PO BID tab.er 09/04/21 [Rx] Past Medical History HEENT History: Reports: Impaired Vision Other HEENT History: glasses. poor dentition Cardiovascular History: Reports: High Cholesterol, Hypertension Other Cardiovascular History: NSTEMI. implantable loop recorder Respiratory History: Reports: SOB, Other (See Below) Other Respiratory History: prn inhaler. chronic rhinitis. nocturnal oxygen desaturation Gastrointestinal History: Reports: Diverticulosis, Irritable Bowel Syndrome Other Gastrointestinal History: diverticulosis of large intestine without hemorrhage. dysphagia Genitourinary History: Reports: BPH, Renal Disease Other Genitourinary History: Stage 3a chronic kidney disease Musculoskeletal History: Reports: Arthritis, Back Pain, Chronic, Osteoarthritis Other Musculoskeletal History: arthritis of elbow. hx of frostbite to bilateral feet Neurological History: Reports: CVA, Migraines, Other (See Below) Other Neuro History: R hand/forearm weakness today -- R sided weakness. insomnia. expressive aphasia Psychiatric History: Reports: None Endocrine/Metabolic History: Reports: Other (See Below) Other Endocrine/Metabolic History: had been on synthroid - reports not now. hx of prediabetes. hyponatremia Hematologic History: Reports: Iron Deficiency Dermatologic History: Reports: Psoriasis - Past Surgical History Other Neurological Surgeries/Procedures: impaired gait and mobility. impaired instrumental ADLs. decreased ADLs Social & Family History - Tobacco Use Tobacco Use Status *Q: Never Tobacco User - Caffeine Use Caffeine Use: Reports: None H&P Review of Systems - Review of Systems: Review Of Systems: See Below General: Reports: No Symptoms HEENT: Reports: No Symptoms Pulmonary: Reports: Shortness of Breath. Denies: Wheezing, Cough Cardiovascular: Reports: Dyspnea on Exertion, Other (cool fingers). Denies: Chest Pain, Palpitations, Edema, Lightheadedness, Syncope Gastrointestinal: Denies: Diarrhea (no diarrhea for last 2 days) Genitourinary: Reports: No Symptoms Musculoskeletal: Reports: No Symptoms Skin: Reports: No Symptoms Psychiatric: Reports: No Symptoms Neurological: Reports: Confusion (since CVA in November 2020), Weakness (R sided since CVA in November 2020) Hematologic/Lymphatic: Reports: No Symptoms Immunologic: Reports: Seasonal Allergy Exam - Exam Exam: See Below - Vital Signs Vital Signs: Last Vital Signs Temp 98.7 F 09/04/21 10:24 Pulse 64 09/04/21 10:24 Resp 16 09/04/21 10:24 BP 115/63 09/04/21 10:24 Pulse Ox 97 09/04/21 10:24 Weight: 142 lb 8 oz - Exam Quality Assessment: DVT Prophylaxis (heparin gtt, plavix, ASA). No: Supple mental Oxygen General: Alert, Oriented, Cooperative. No: Mild Distress HEENT: Conjunctiva Clear, Mucosa Moist & [place] Neck: Supple, Trachea Midline. No: Carotid Bruit Lungs: Decreased Breath Sounds. No: Crackles, Rhonchi, Wheezing Cardiovascular: Regular Rate, Regular Rhythm. No: Systolic Murmur GI/Abdominal Exam: Normal Bowel Sounds, Soft, Non-Tender (Male) Exam: Deferred Rectal (Males) Exam: Deferred Back Exam: Normal Inspection, Full Range of Motion Extremities: Normal Inspection, Normal Range of Motion, Non-Tender, No Pedal Edema, Slow Capillary Refill Peripheral Pulses: 1+: Dorsalis Pedis (L), Dorsalis Pedis (R) Skin: Warm, Dry, Intact Neuro Extensive - Mental Status: Alert, Normal Mood/Affect, Other (at baseline) Psychiatric: Alert, Normal Affect, Normal Mood - Patient Data Lab Results Last 24 hrs: Laboratory Results - last 24 hr 09/03/21 09/03/21 09/03/21 Range/Units 17:10 17:10 17:10 WBC 11.12 H (5.00-10.00) 10^3/uL RBC 3.79 L (4.50-6.00) 10^6/uL Hgb 11.4 L (13.0-17.0) g/dL Hct 34.2 L (40.0-52.0) % MCV 90.2 (82.0-92.0) fL MCH 30.1 (27.0-31.0) pg MCHC 33.3 (32.0-36.0) g/dL RDW 13.0 (11.5-14.5) % Plt Count 108 L D (150-400) 10^3/uL MPV 10.9 H (7.4-10.4) fL Immature Gran % (Auto) 0.4 (0.0-5.0) % Neut % (Auto) 77.3 H (50.0-70.0) % Lymph % (Auto) 8.5 L (20.0-40.0) % [place] % (Auto) 6.6 (2.0-8.0) % Eos % (Auto) 6.8 H (1.0-3.0) % Baso % (Auto) 0.4 (0.0-1.0) % Neut # (Auto) 8.59 H (2.50-7.00) 10^3/uL Lymph # (Auto) 0.95 L (1.00-4.00) 10^3/uL [place] # (Auto) 0.73 (0.10-0.80) 10^3/uL Eos # (Auto) 0.76 H (0.10-0.30) 10^3/uL Baso # (Auto) 0.05 (0.00-0.10) 10^3/uL Immature Gran # (Auto) 0.04 (0.00-0.50) 10^3/uL Add Manual Diff Neutrophils % (Manual) (50-70) % Lymphocytes % (Manual) (20-40) % Monocytes % (Manual) (2-8) % Eosinophils % (Manual) (1-3) % Blast Cells % Platelet Estimate Decreased Poikilocytosis RBC Morph Comment APTT 26.2 (22.8-31.4) SEC D-Dimer, Quantitative (<400) ng/mL Sodium 134 L (136-145) mmol/L Potassium 4.5 (3.5-5.1) mmol/L Chloride 99 (98-107) mmol/L Carbon Dioxide 26.2 (21.0-32.0) mmol/L Anion Gap 13.3 (5-15) mmol/L BUN 18 (7-18) mg/dL Creatinine 1.03 (0.51-1.17) mg/dL Est Cr Clr Drug Dosing 62.08 mL/min Estimated GFR (MDRD) > 60 mL/min Glucose 93 (70-140) mg/dL Lactic Acid (0.4-2.0) mmol/L Calcium 8.3 L (8.7-10.3) mg/dL Total Bilirubin 0.4 (0.2-1.0) mg/dL AST 22 (15-37) U/L ALT 23 (14-63) U/L Alkaline Phosphatase 80 (46-116) U/L Troponin I High Sens 1294.100 H* (0-76.000) pg/mL B-Natriuretic Peptide (0-100) pg/mL Total Protein 7.1 (6.4-8.2) g/dL Albumin 2.77 L (3.40-5.00) g/dL Specimen Type Urine Color (YELLOW) Urine Appearance (CLEAR) Urine pH (5.0-9.0) Ur Specific [place] (1.005-1.030) Urine Protein (NEGATIVE) mg/dL Urine Glucose (UA) (NEGATIVE) mg/dL Urine Ketones (NEGATIVE) mg/dL Urine Occult Blood (NEGATIVE) Urine Nitrite (NEGATIVE) Urine Bilirubin (NEGATIVE) Urine Urobilinogen (0.2-1.0) E.U./dL Ur Leukocyte Esterase (NEGATIVE) Urine RBC (0-5) /HPF Urine WBC (0-5) /HPF Ur Epithelial Cells /LPF Urine Bacteria (NONE TO FEW) /HPF Urine Mucus (NEGATIVE) /LPF 09/03/21 09/03/21 09/03/21 Range/Units 17:20 17:57 20:10 WBC (5.00-10.00) 10^3/uL RBC (4.50-6.00) 10^6/uL Hgb (13.0-17.0) g/dL Hct (40.0-52.0) % MCV (82.0-92.0) fL MCH (27.0-31.0) pg MCHC (32.0-36.0) g/dL RDW (11.5-14.5) % Plt Count (150-400) 10^3/uL MPV (7.4-10.4) fL Immature Gran % (Auto) (0.0-5.0) % Neut % (Auto) (50.0-70.0) % Lymph % (Auto) (20.0-40.0) % [place] % (Auto) (2.0-8.0) % Eos % (Auto) (1.0-3.0) % Baso % (Auto) (0.0-1.0) % Neut # (Auto) (2.50-7.00) 10^3/uL Lymph # (Auto) (1.00-4.00) 10^3/uL [place] # (Auto) (0.10-0.80) 10^3/uL Eos # (Auto) (0.10-0.30) 10^3/uL Baso # (Auto) (0.00-0.10) 10^3/uL Immature Gran # (Auto) (0.00-0.50) 10^3/uL Add Manual Diff Neutrophils % (Manual) (50-70) % Lymphocytes % (Manual) (20-40) % Monocytes % (Manual) (2-8) % Eosinophils % (Manual) (1-3) % Blast Cells % Platelet Estimate Poikilocytosis RBC Morph Comment APTT (22.8-31.4) SEC D-Dimer, Quantitative (<400) ng/mL Sodium (136-145) mmol/L Potassium (3.5-5.1) mmol/L Chloride (98-107) mmol/L Carbon Dioxide (21.0-32.0) mmol/L Anion Gap (5-15) mmol/L BUN (7-18) mg/dL Creatinine (0.51-1.17) mg/dL Est Cr Clr Drug Dosing mL/min Estimated GFR (MDRD) mL/min Glucose (70-140) mg/dL Lactic Acid 1.1 (0.4-2.0) mmol/L Calcium (8.7-10.3) mg/dL Total Bilirubin (0.2-1.0) mg/dL AST (15-37) U/L ALT (14-63) U/L Alkaline Phosphatase (46-116) U/L Troponin I High Sens 1189.200 H* (0-76.000) pg/mL B-Natriuretic Peptide (0-100) pg/mL Total Protein (6.4-8.2) g/dL Albumin (3.40-5.00) g/dL Specimen Type Urinvoid Urine Color Yellow (YELLOW) Urine Appearance Clear (CLEAR) Urine pH 6.5 (5.0-9.0) Ur Specific [place] 1.015 (1.005-1.030) Urine Protein Negative (NEGATIVE) mg/dL Urine Glucose (UA) Negative (NEGATIVE) mg/dL Urine Ketones Negative (NEGATIVE) mg/dL Urine Occult Blood Negative (NEGATIVE) Urine Nitrite Negative (NEGATIVE) Urine Bilirubin Negative (NEGATIVE) Urine Urobilinogen 0.2 (0.2-1.0) E.U./dL Ur Leukocyte Esterase Negative (NEGATIVE) Urine RBC 0-5 (0-5) /HPF Urine WBC Not seen (0-5) /HPF Ur Epithelial Cells Occasional /LPF Urine Bacteria Not seen (NONE TO FEW) /HPF Urine Mucus Occasional H (NEGATIVE) /LPF 09/03/21 09/04/21 09/04/21 Range/Units 23:08 07:15 07:28 WBC 7.53 (5.00-10.00) 10^3/uL RBC 3.66 L (4.50-6.00) 10^6/uL Hgb 11.0 L (13.0-17.0) g/dL Hct 33.8 L (40.0-52.0) % MCV 92.3 H (82.0-92.0) fL MCH 30.1 (27.0-31.0) pg MCHC 32.5 (32.0-36.0) g/dL RDW 13.3 (11.5-14.5) % Plt Count 63 L (150-400) 10^3/uL MPV 11.0 H (7.4-10.4) fL Immature Gran % (Auto) (0.0-5.0) % Neut % (Auto) (50.0-70.0) % Lymph % (Auto) (20.0-40.0) % [place] % (Auto) (2.0-8.0) % Eos % (Auto) (1.0-3.0) % Baso % (Auto) (0.0-1.0) % Neut # (Auto) (2.50-7.00) 10^3/uL Lymph # (Auto) (1.00-4.00) 10^3/uL [place] # (Auto) (0.10-0.80) 10^3/uL Eos # (Auto) (0.10-0.30) 10^3/uL Baso # (Auto) (0.00-0.10) 10^3/uL Immature Gran # (Auto) (0.00-0.50) 10^3/uL Add Manual Diff Yes Neutrophils % (Manual) 51 (50-70) % Lymphocytes % (Manual) 27 (20-40) % Monocytes % (Manual) 4 (2-8) % Eosinophils % (Manual) 9 H (1-3) % Blast Cells % 9.0 Platelet Estimate Decreased Poikilocytosis Few RBC Morph Comment See note APTT 53.2 H* D (22.8-31.4) SEC D-Dimer, Quantitative (<400) ng/mL Sodium (136-145) mmol/L Potassium (3.5-5.1) mmol/L Chloride (98-107) mmol/L Carbon Dioxide (21.0-32.0) mmol/L Anion Gap (5-15) mmol/L BUN (7-18) mg/dL Creatinine (0.51-1.17) mg/dL Est Cr Clr Drug Dosing mL/min Estimated GFR (MDRD) mL/min Glucose (70-140) mg/dL Lactic Acid (0.4-2.0) mmol/L Calcium (8.7-10.3) mg/dL Total Bilirubin (0.2-1.0) mg/dL AST (15-37) U/L ALT (14-63) U/L Alkaline Phosphatase (46-116) U/L Troponin I High Sens 1198.300 H* (0-76.000) pg/mL B-Natriuretic Peptide (0-100) pg/mL Total Protein (6.4-8.2) g/dL Albumin (3.40-5.00) g/dL Specimen Type Urine Color (YELLOW) Urine Appearance (CLEAR) Urine pH (5.0-9.0) Ur Specific [place] (1.005-1.030) Urine Protein (NEGATIVE) mg/dL Urine Glucose (UA) (NEGATIVE) mg/dL Urine Ketones (NEGATIVE) mg/dL Urine Occult Blood (NEGATIVE) Urine Nitrite (NEGATIVE) Urine Bilirubin (NEGATIVE) Urine Urobilinogen (0.2-1.0) E.U./dL Ur Leukocyte Esterase (NEGATIVE) Urine RBC (0-5) /HPF Urine WBC (0-5) /HPF Ur Epithelial Cells /LPF Urine Bacteria (NONE TO FEW) /HPF Urine Mucus (NEGATIVE) /LPF 09/04/21 09/04/21 Range/Units 07:28 07:28 WBC (5.00-10.00) 10^3/uL RBC (4.50-6.00) 10^6/uL Hgb (13.0-17.0) g/dL Hct (40.0-52.0) % MCV (82.0-92.0) fL MCH (27.0-31.0) pg MCHC (32.0-36.0) g/dL RDW (11.5-14.5) % Plt Count (150-400) 10^3/uL MPV (7.4-10.4) fL Immature Gran % (Auto) (0.0-5.0) % Neut % (Auto) (50.0-70.0) % Lymph % (Auto) (20.0-40.0) % [place] % (Auto) (2.0-8.0) % Eos % (Auto) (1.0-3.0) % Baso % (Auto) (0.0-1.0) % Neut # (Auto) (2.50-7.00) 10^3/uL Lymph # (Auto) (1.00-4.00) 10^3/uL [place] # (Auto) (0.10-0.80) 10^3/uL Eos # (Auto) (0.10-0.30) 10^3/uL Baso # (Auto) (0.00-0.10) 10^3/uL Immature Gran # (Auto) (0.00-0.50) 10^3/uL Add Manual Diff Neutrophils % (Manual) (50-70) % Lymphocytes % (Manual) (20-40) % Monocytes % (Manual) (2-8) % Eosinophils % (Manual) (1-3) % Blast Cells % Platelet Estimate Poikilocytosis RBC Morph Comment APTT (22.8-31.4) SEC D-Dimer, Quantitative 472 H (<400) ng/mL Sodium 134 L (136-145) mmol/L Potassium 4.3 (3.5-5.1) mmol/L Chloride 101 (98-107) mmol/L Carbon Dioxide 26.6 (21.0-32.0) mmol/L Anion Gap 10.7 (5-15) mmol/L BUN 17 (7-18) mg/dL Creatinine 0.99 (0.51-1.17) mg/dL Est Cr Clr Drug Dosing 63.48 mL/min Estimated GFR (MDRD) > 60 mL/min Glucose 90 (70-140) mg/dL Lactic Acid (0.4-2.0) mmol/L Calcium 8.3 L (8.7-10.3) mg/dL Total Bilirubin (0.2-1.0) mg/dL AST (15-37) U/L ALT (14-63) U/L Alkaline Phosphatase (46-116) U/L Troponin I High Sens 1295.900 H* (0-76.000) pg/mL B-Natriuretic Peptide 76 (0-100) pg/mL Total Protein (6.4-8.2) g/dL Albumin (3.40-5.00) g/dL Specimen Type Urine Color (YELLOW) Urine Appearance (CLEAR) Urine pH (5.0-9.0) Ur Specific [place] (1.005-1.030) Urine Protein (NEGATIVE) mg/dL Urine Glucose (UA) (NEGATIVE) mg/dL Urine Ketones (NEGATIVE) mg/dL Urine Occult Blood (NEGATIVE) Urine Nitrite (NEGATIVE) Urine Bilirubin (NEGATIVE) Urine Urobilinogen (0.2-1.0) E.U./dL Ur Leukocyte Esterase (NEGATIVE) Urine RBC (0-5) /HPF Urine WBC (0-5) /HPF Ur Epithelial Cells /LPF Urine Bacteria (NONE TO FEW) /HPF Urine Mucus (NEGATIVE) /LPF Result Diagrams: 09/04/21 07:28 09/04/21 07:28 Sepsis Event Note - Evaluation Sepsis Screening Result: No Definite Risk - Focused Exam Vital Signs: Vital Signs Temp Pulse Resp BP Pulse Ox 09/04/21 10:24 98.7 F 64 16 115/63 97 09/04/21 08:00 98.6 F 62 16 126/65 98 09/04/21 06:08 97.4 F 55 L 16 97/49 L 96 09/04/21 04:00 55 L 99/53 L 09/04/21 03:00 97.1 F 66 20 98 09/04/21 02:00 61 105/52 L 09/04/21 00:00 63 107/49 L Problem List Initiated/Reviewed/Updated: Yes Orders Last 24hrs: Active Orders 24 hr Category Date Time Status Patient Status [ADT] Routine ADT 09/03/21 19:17 Active Cardiac Monitoring [RC] 03,07,11,15,19,23 Care 09/03/21 19:18 Active Oxygen Therapy [RC] PRN Care 09/03/21 19:17 Active Up With Assistance [RC] ASDIRECTED Care 09/03/21 19:17 Active VTE/DVT Education [RC] PER UNIT ROUTINE Care 09/03/21 19:17 Active Vital Signs [RC] 0300,0700,1100,1500,1900,2300 Care 09/03/21 19:17 Active NPO After Midnight [Nothing per Oral After Midnight Diet 09/04/21 Breakfast Active Diet] [DIET] CTA Chest W Contrast [Ang Chest] [CT] Routine Exams 09/04/21 10:12 Ordered Aspirin Med 09/04/21 11:15 Ordered 81 mg PO DAILY Clopidogrel [Plavix] Med 09/04/21 11:15 Ordered 75 mg PO DAILY Heparin Sodium/D5W 250 ml Med 09/03/21 19:23 Active IV TITRATE Melatonin Med 09/04/21 11:05 Ordered 3 mg PO BEDTIME PRN Metoprolol Succinate [Toprol XL] Med 09/04/21 11:00 Ordered 12.5 mg PO BID atorvaSTATin [Lipitor] Med 09/04/21 21:00 Ordered 40 mg PO BEDTIME Peripheral IV Insertion Adult [OM.PC] Routine Oth 09/03/21 17:01 Ordered Resuscitation Status Routine Resus Stat 09/03/21 19:17 Ordered EKG 12 Lead [EK] Stat Ther 09/03/21 17:01 Stop Req EKG 12 Lead [EK] Urgent Ther 09/03/21 20:10 Ordered EKG 12 Lead [EK] Urgent Ther 09/03/21 23:10 Ordered Medication Orders Aspirin (Aspirin 81 Mg Tab.Chew) 81 mg PO DAILY ZAMZAM Atorvastatin Calcium (Atorvastatin 40 Mg Tab) 40 mg PO BEDTIME ZAMZAM Clopidogrel Bisulfate (Clopidogrel 75 Mg Tab) 75 mg PO DAILY ZAMZAM Heparin Sodium/Dextrose () 250 mls @ 7.756 mls/hr IV TITRATE ZAMZAM; Protocol Last Admin: 09/03/21 19:23 Dose: 12 units/kg/hr, 7.756 mls/hr Documented by: MARCELA Cosigned by: BG Melatonin (Melatonin 3 Mg Tab) 3 mg PO BEDTIME PRN PRN Reason: Insomnia Metoprolol Succinate (Metoprolol Succinate 25 Mg Tab.Er) 12.5 mg PO BID ZAMZAM Assessment/Plan Comment:: HPI summary: Joey is a 71yM who initially presented to the [facility] yesterday and was evaluated by Dr Adams for c/o SOB worse than his baseline as well as fatigue, balance issues and increased confusion. Nursing unable to obtain a pulse ox reading in clinic, nursing attempted to apply a warming pad and patient took off his shirt and opened the window stating he was burning up all over. Patient was negative in the clinic for COVID and transferred to ER by EMS per 's request for additional evaluation and treatment. PMH significant for NSTEMI and CVA in November, with residual right sided weakness, confusion and expressive aphasia. ED course: Patient denied any chest pain, dizziness, diaphoresis, edema. Patient reported URI symptoms of cough and nasal congestion. Patient is a questionable historian given his confusion at baseline. VS: T 97.2, HR 69, BP 125/69, O2 100% on RA. WBC 11.12, Hgb 11.4, Plt 108. Na 134, K 4.5, BUN 18, Creatinine 1.03, Lactic acid 1.1, Troponin 1294.1. Head CT no acute intracranial process CXR no acute cardiopulmonary process UA unremarkable Heparin gtt started in ER with bolus of 4000units, then gtt per protocol. NS 1L given in ER Patient admitted to observation status per Dr Adams due to inability to transfer patient due to lack of beds in the region. ER provider called [facility] [place], [facility] and [facility] in [place] without any bed availability. labor relations representative down currently at [facility]. Hospital course: 09/04/21: SOB improved this morning, patient reports mainly occurs when he walks a long distance and is more in his nose after a facial injury due to a horse about 7-8 years ago. Patient is not an overly reliable historian due to confusion since CVA. Patient denies CP, diaphoresis, nausea. Question history as provided by patient given confusion since CVA in November,. No diarrhea for the past 2 days per patient. Lung sounds diminished, HR RRR, no carotid bruit, no edema. No indication of any distress. Hemodynamically acceptable, afebrile. Blood pressure soft earlier this morning 97/49. Repeated labs this am: WBC 7.53, Hgb 11.0, Plt 63. Na 134, K 4.3, BUN 17, Creatinine 0.99, BNP 76, D-dimer 472, Troponin 1295.9 this morning. Patient given ASA 324mg last evening after admission and loading dose of plavix of 300mg. Cardiology recommending metoprolol succinate 12.5mg PO BID. Hospitalization problems and plan: # NSTEMI - EKG essentially unchanged since NSTEMI in November, - NSR HR 64, AK 146ms, QRS 84, QTc 425 - pathological Q wave # Elevated troponin; initial result of 1294, repeat of 1189, 1198 last evening. Repeat this am 1295 # Thrombocytopenia; initial result of 108 prior to heparin gtt - Heparin gtt stopped (per Dr Keene [facility]) this morning due to platelets of 63 (initially 108 prior to start of gtt) - Continue plavix 75mg PO daily after initial loading dose last evening (Ok to continue per Dr Keene) - Continue ASA 81mg PO daily; 324mg chewable given last evening (Ok to continue per Dr Keene) - Continue atorvastatin 40mg PO HS daily - Continue cardiac monitoring # Elevated D dimer; 472 - CTA chest completed to R/O PE and was negative Chronic, stable conditions: # Hypertension - takes metoprolol succinate 50mg PO daily, lisinopril 5mg PO daily (On HOLD) # Hx NSTEMI # Grade 1 diastolic dysfunction per echo on 11/26/20 - EF normal at 65% # Hx CVA # Chronic small vessel disease # s/p placement of implantable loop recorder # Hyperlipidemia - continue atorvastatin 40mg PO HS daily (lipid panel 01/27/21: Total cholesterol 152, LDL 72) # Hx of prediabetes # Hyponatremia # Nocturnal oxygen desaturation # Iron deficiency anemia - takes ferrous sulfate 325mg Q48H # R sided weakness s/p CVA # Expressive aphasia # Confusion # Insomnia - continue melatonin 3mg HS daily # Poor dentition # Irritable bowel syndrome - takes bentyl 20mg PO BID, colestipol 1g PO BID and immodium PRN # Diverticulosis # Dysphagia # BPH with nocturia - takes finasteride 2.5mg PO daily - (On hold) # CKD Stage IIIa # Impaired gait and mobility # Decreased activities of daily living # Chronic rhinitis - takes flonase daily # Left shoulder pain - takes diclofenac 75mg PO daily (HOLD) & takes misoprostol 100mcg PO BID with diclofenac due to stomach problems - RECOMMEND NO NSAIDs due to current NSTEMI and previous NSTEMI in 12/08 Hospitalization details: # FEN: Oral fluids, electrolytes stable, will start heart healthy diet while attempting to transfer patient # PPX: Continue ASA81 mg PO daily, plavix 75mg PO daily. Heparin gtt stopped this am due to thrombocytopenia, platelets 63. # Code status: DNR/DNI # Emergency contact: , Shirin [phone] # Disposition: Patient currently on observation status while attempting to arrange for transfer to higher level of care for cardiology due to significant elevation of troponin. [facility] only allowing transfer of STEMI, stroke and trauma. Patient currently on the list for admission to [facility]. Called [facility] which may be a possible option for transfer, cardiology, Dr Rubi agreeable to accept patient, waiting to discuss patient case with hospitalist. No beds currently available, if accepted by hospitalist, would have to wait for discharge and notification to [facility] to initiate transfer once a bed opens up.
[2021-09-04] MEDS ORDERED: Aspirin 81 MG Tab.Chew PO SCH (11:30)
[2021-09-04] MEDS ORDERED: Metoprolol Succinate 25 MG Tab.ER PO SCH (11:30)
[2021-09-04] MEDS ORDERED: Clopidogrel 75 MG Tab PO SCH (11:30)
--- NOTE | 2021-09-04 11:35 | CT ---
[id number] CT/CTA Chest EXAM: CT ANGIOGRAM CHEST INDICATION: SHORTNESS OF BREATH, ELEVATED D DIMER. COMPARISON: None. DISCUSSION: The pulmonary arteries are normal in appearance with no emboli identified. The lungs are clear with no nodule, infiltrate or mass identified.No pleural or pericardial effusion. Normal heart size. No mediastinal, hilar or axillary lymphadenopathy. Old appearing compression deformity of the T12 vertebral body. Small hiatal hernia. IMPRESSION: 1. No evidence of acute pulmonary embolism or active pneumonia. Patel Leone DO 09/04/21 1134 Thank you for allowing us to participate in the care of your patient.
--- NOTE | 2021-09-04 12:53 | PCM.DCSUM1 ---
Discharge Summary - Hospital Course Free Text/Narrative:: Date of admission: 09/03/21 Date of discharge: 09/04/21 Admission diagnoses: # NSTEMI - EKG essentially unchanged since NSTEMI in November, - NSR HR 64, AR 146ms, QRS 84, QTc 425 - pathological Q wave # Elevated troponin; initial result of 1294, repeat of 1189, 1198 last evening. Repeat this am 1295 # Thrombocytopenia; initial result of 108 prior to heparin gtt - Heparin gtt stopped (per Dr Keene [facility]) this morning due to platelets of 63 (initially 108 prior to start of gtt) - Continue plavix 75mg PO daily after initial loading dose last evening (Ok to continue per Dr Keene) - Continue ASA 81mg PO daily; 324mg chewable given last evening (Ok to continue per Dr Keene) - Continue atorvastatin 40mg PO HS daily - Continue cardiac monitoring # Elevated D dimer; 472 - CTA chest completed to R/O PE and was negative Discharge diagnoses: # Hypertension - takes metoprolol succinate 50mg PO daily, lisinopril 5mg PO daily (On HOLD) # Hx NSTEMI # Grade 1 diastolic dysfunction per echo on 11/26/20 - EF normal at 65% # Hx CVA # Chronic small vessel disease # s/p placement of implantable loop recorder # Hyperlipidemia - continue atorvastatin 40mg PO HS daily (lipid panel 01/27/21: Total cholesterol 152, LDL 72) # Hx of prediabetes # Hyponatremia # Nocturnal oxygen desaturation # Iron deficiency anemia - takes ferrous sulfate 325mg Q48H # R sided weakness s/p CVA # Expressive aphasia # Confusion # Insomnia - continue melatonin 3mg HS daily # Poor dentition # Irritable bowel syndrome - takes bentyl 20mg PO BID, colestipol 1g PO BID and immodium PRN # Diverticulosis # Dysphagia # BPH with nocturia - takes finasteride 2.5mg PO daily - (On hold) # CKD Stage IIIa # Impaired gait and mobility # Decreased activities of daily living # Chronic rhinitis - takes flonase daily # Left shoulder pain - takes diclofenac 75mg PO daily (HOLD) & takes misoprostol 100mcg PO BID with diclofenac due to stomach problems - RECOMMEND NO NSAIDs due to current NSTEMI and previous NSTEMI in 12/08 HPI summary: Joey is a 71yM who initially presented to the [facility] yesterday and was evaluated by Dr Adams for c/o SOB worse than his baseline as well as fatigue, balance issues and increased confusion. Nursing unable to obtain a pulse ox reading in clinic, nursing attempted to apply a warming pad and patient took off his shirt and opened the window stating he was burning up all over. Patient was negative in the clinic for COVID and transferred to ER by EMS per 's request for additional evaluation and treatment. PMH significant for NSTEMI and CVA in November, with residual right sided weakness, confusion and expressive aphasia. ED course: Patient denied any chest pain, dizziness, diaphoresis, edema. Patient reported URI symptoms of cough and nasal congestion. Patient is a questionable historian given his confusion at baseline. VS: T 97.2, HR 69, BP 125/69, O2 100% on RA. WBC 11.12, Hgb 11.4, Plt 108. Na 134, K 4.5, BUN 18, Creatinine 1.03, Lactic acid 1.1, Troponin 1294.1. Head CT no acute intracranial process CXR no acute cardiopulmonary process UA unremarkable Heparin gtt started in ER with bolus of 4000units, then gtt per protocol. NS 1L given in ER Patient admitted to observation status per Dr Adams due to inability to transfer patient due to lack of beds in the region. ER provider called [facility], [facility] and in [place] without any bed availability. laboratory animal care veterinarian down currently at [facility]. Hospital course: 09/04/21: SOB improved this morning, patient reports mainly occurs when he walks a long distance and is more in his nose after a facial injury due to a horse about 7-8 years ago. Patient is not an overly reliable historian due to confusion since CVA. Patient denies CP, diaphoresis, nausea. Question history as provided by patient given confusion since CVA in November,. No diarrhea for the past 2 days per patient. Lung sounds diminished, HR RRR, no carotid bruit, no edema. No indication of any distress. Hemodynamically acceptable, afebrile. Blood pressure soft earlier this morning 97/49. Repeated labs this am: WBC 7.53, Hgb 11.0, Plt 63. Na 134, K 4.3, BUN 17, Creatinine 0.99, BNP 76, D-dimer 472, Troponin 1295.9 this morning. Patient given ASA 324mg last evening after admission and loading dose of plavix of 300mg. Cardiology recommending metoprolol succinate 12.5mg PO BID; parameters of holding for SBP < 100 or DBP < 60 and HR < 60. Addendum: Dr Mckeon, hospitalist for [facility] agreeable to accept patient. [facility] to notify [facility] once a bed becomes available for patient to initiate transfer process. Addendum: Nursing called from hospital to notify of bed available for patient, will enter discharge orders to facilitate transfer process. Discharge and follow-up recommendations: - Discharge to [facility] for additional cardiology workup and interventions if indicated - New medications at discharge: Plavix 75mg PO daily - Follow-up after hospitalization in [place] - Discharge Data Discharge Date: 09/04/21 Discharge Disposition: DC/Tfer to Acute Hospital 02 Condition: Fair - Referral to Home Health Primary Care Physician: Bryan Leone MD - Discharge Plan *PRESCRIPTION DRUG MONITORING PROGRAM REVIEWED*: Not Applicable *COPY OF PRESCRIPTION DRUG MONITORING REPORT IN PATIENT TEE: Not Applicable Home Medications: Home Meds *Aloe Vera Juice 4 oz PO DAILY 01/04/18 [History] Ascorbic Acid 250 mg PO DAILY 01/04/18 [History] Aspirin 81 mg PO DAILY 01/04/18 [History] Cholecalciferol (Vitamin D3) [Vitamin D3] 1,000 unit PO DAILY 01/04/18 [History] Colestipol [Colestipol HCl] 1 gm PO BID 01/04/18 [History] Dicyclomine [Bentyl] 20 mg PO BID 01/04/18 [History] Fluticasone Propionate [Flonase] 2 spray NASBOTH BEDTIME 01/04/18 [History] Lisinopril 5 mg PO DAILY 01/04/18 [History] Docusate Sodium 100 mg PO BEDTIME PRN 09/03/21 [History] Ferrous Sulfate [Iron] 325 mg PO Q48H 09/03/21 [History] Finasteride 2.5 mg PO DAILY 09/03/21 [History] Loperamide [Imodium] 2 mg PO ASDIRECTED PRN 09/03/21 [History] Melatonin 3 mg PO BEDTIME PRN 09/03/21 [History] Multivitamin with Minerals [Multiple Vitamin] 1 tab PO DAILY 09/03/21 [History] Nitroglycerin 0.4 mg SL Q5M PRN 09/03/21 [History] Sodium Chloride [Saline Nasal [place]] 2 sprays NASBOTH Q2H PRN 09/03/21 [History] atorvaSTATin [Lipitor] 40 mg PO BEDTIME 09/03/21 [History] Clopidogrel [Plavix] 75 mg PO DAILY tablet 09/04/21 [Rx] Metoprolol Succinate [Toprol XL] 12.5 mg PO BID tab.er 09/04/21 [Rx] Oxygen Therapy Mode: Room Air - Discharge Summary/Plan Comment DC Time >30 min.: Yes Total # of Minutes for Discharge Time: 45 - General Info Date of Service: 09/04/21 Subjective Update: See H&P for ROS data - Patient Data Vitals - Most Recent: Last Vital Signs Temp 98.7 F 09/04/21 10:24 Pulse 58 L 09/04/21 11:40 Resp 16 09/04/21 10:24 BP 116/58 L 09/04/21 11:40 Pulse Ox 97 09/04/21 10:24 Weight - Most Recent: 142 lb 8 oz I&O - Last 24 hours: Intake & Output 09/03/21 09/04/21 09/04/21 22:59 06:59 14:59 Output Total 300 Balance -300 Lab Results - Last 24 hrs: Laboratory Results - last 24 hr 09/03/21 09/03/21 09/03/21 Range/Units 17:10 17:10 17:10 WBC 11.12 H (5.00-10.00) 10^3/uL RBC 3.79 L (4.50-6.00) 10^6/uL Hgb 11.4 L (13.0-17.0) g/dL Hct 34.2 L (40.0-52.0) % MCV 90.2 (82.0-92.0) fL MCH 30.1 (27.0-31.0) pg MCHC 33.3 (32.0-36.0) g/dL RDW 13.0 (11.5-14.5) % Plt Count 108 L D (150-400) 10^3/uL MPV 10.9 H (7.4-10.4) fL Immature Gran % (Auto) 0.4 (0.0-5.0) % Neut % (Auto) 77.3 H (50.0-70.0) % Lymph % (Auto) 8.5 L (20.0-40.0) % [place] % (Auto) 6.6 (2.0-8.0) % Eos % (Auto) 6.8 H (1.0-3.0) % Baso % (Auto) 0.4 (0.0-1.0) % Neut # (Auto) 8.59 H (2.50-7.00) 10^3/uL Lymph # (Auto) 0.95 L (1.00-4.00) 10^3/uL [place] # (Auto) 0.73 (0.10-0.80) 10^3/uL Eos # (Auto) 0.76 H (0.10-0.30) 10^3/uL Baso # (Auto) 0.05 (0.00-0.10) 10^3/uL Immature Gran # (Auto) 0.04 (0.00-0.50) 10^3/uL Add Manual Diff Neutrophils % (Manual) (50-70) % Lymphocytes % (Manual) (20-40) % Monocytes % (Manual) (2-8) % Eosinophils % (Manual) (1-3) % Blast Cells % Platelet Estimate Decreased Poikilocytosis RBC Morph Comment APTT 26.2 (22.8-31.4) SEC D-Dimer, Quantitative (<400) ng/mL Sodium 134 L (136-145) mmol/L Potassium 4.5 (3.5-5.1) mmol/L Chloride 99 (98-107) mmol/L Carbon Dioxide 26.2 (21.0-32.0) mmol/L Anion Gap 13.3 (5-15) mmol/L BUN 18 (7-18) mg/dL Creatinine 1.03 (0.51-1.17) mg/dL Est Cr Clr Drug Dosing 62.08 mL/min Estimated GFR (MDRD) > 60 mL/min Glucose 93 (70-140) mg/dL Lactic Acid (0.4-2.0) mmol/L Calcium 8.3 L (8.7-10.3) mg/dL Total Bilirubin 0.4 (0.2-1.0) mg/dL AST 22 (15-37) U/L ALT 23 (14-63) U/L Alkaline Phosphatase 80 (46-116) U/L Troponin I High Sens 1294.100 H* (0-76.000) pg/mL B-Natriuretic Peptide (0-100) pg/mL Total Protein 7.1 (6.4-8.2) g/dL Albumin 2.77 L (3.40-5.00) g/dL Specimen Type Urine Color (YELLOW) Urine Appearance (CLEAR) Urine pH (5.0-9.0) Ur Specific [place] (1.005-1.030) Urine Protein (NEGATIVE) mg/dL Urine Glucose (UA) (NEGATIVE) mg/dL Urine Ketones (NEGATIVE) mg/dL Urine Occult Blood (NEGATIVE) Urine Nitrite (NEGATIVE) Urine Bilirubin (NEGATIVE) Urine Urobilinogen (0.2-1.0) E.U./dL Ur Leukocyte Esterase (NEGATIVE) Urine RBC (0-5) /HPF Urine WBC (0-5) /HPF Ur Epithelial Cells /LPF Urine Bacteria (NONE TO FEW) /HPF Urine Mucus (NEGATIVE) /LPF 09/03/21 09/03/21 09/03/21 Range/Units 17:20 17:57 20:10 WBC (5.00-10.00) 10^3/uL RBC (4.50-6.00) 10^6/uL Hgb (13.0-17.0) g/dL Hct (40.0-52.0) % MCV (82.0-92.0) fL MCH (27.0-31.0) pg MCHC (32.0-36.0) g/dL RDW (11.5-14.5) % Plt Count (150-400) 10^3/uL MPV (7.4-10.4) fL Immature Gran % (Auto) (0.0-5.0) % Neut % (Auto) (50.0-70.0) % Lymph % (Auto) (20.0-40.0) % [place] % (Auto) (2.0-8.0) % Eos % (Auto) (1.0-3.0) % Baso % (Auto) (0.0-1.0) % Neut # (Auto) (2.50-7.00) 10^3/uL Lymph # (Auto) (1.00-4.00) 10^3/uL [place] # (Auto) (0.10-0.80) 10^3/uL Eos # (Auto) (0.10-0.30) 10^3/uL Baso # (Auto) (0.00-0.10) 10^3/uL Immature Gran # (Auto) (0.00-0.50) 10^3/uL Add Manual Diff Neutrophils % (Manual) (50-70) % Lymphocytes % (Manual) (20-40) % Monocytes % (Manual) (2-8) % Eosinophils % (Manual) (1-3) % Blast Cells % Platelet Estimate Poikilocytosis RBC Morph Comment APTT (22.8-31.4) SEC D-Dimer, Quantitative (<400) ng/mL Sodium (136-145) mmol/L Potassium (3.5-5.1) mmol/L Chloride (98-107) mmol/L Carbon Dioxide (21.0-32.0) mmol/L Anion Gap (5-15) mmol/L BUN (7-18) mg/dL Creatinine (0.51-1.17) mg/dL Est Cr Clr Drug Dosing mL/min Estimated GFR (MDRD) mL/min Glucose (70-140) mg/dL Lactic Acid 1.1 (0.4-2.0) mmol/L Calcium (8.7-10.3) mg/dL Total Bilirubin (0.2-1.0) mg/dL AST (15-37) U/L ALT (14-63) U/L Alkaline Phosphatase (46-116) U/L Troponin I High Sens 1189.200 H* (0-76.000) pg/mL B-Natriuretic Peptide (0-100) pg/mL Total Protein (6.4-8.2) g/dL Albumin (3.40-5.00) g/dL Specimen Type Urinvoid Urine Color Yellow (YELLOW) Urine Appearance Clear (CLEAR) Urine pH 6.5 (5.0-9.0) Ur Specific [place] 1.015 (1.005-1.030) Urine Protein Negative (NEGATIVE) mg/dL Urine Glucose (UA) Negative (NEGATIVE) mg/dL Urine Ketones Negative (NEGATIVE) mg/dL Urine Occult Blood Negative (NEGATIVE) Urine Nitrite Negative (NEGATIVE) Urine Bilirubin Negative (NEGATIVE) Urine Urobilinogen 0.2 (0.2-1.0) E.U./dL Ur Leukocyte Esterase Negative (NEGATIVE) Urine RBC 0-5 (0-5) /HPF Urine WBC Not seen (0-5) /HPF Ur Epithelial Cells Occasional /LPF Urine Bacteria Not seen (NONE TO FEW) /HPF Urine Mucus Occasional H (NEGATIVE) /LPF 09/03/21 09/04/21 09/04/21 Range/Units 23:08 07:15 07:28 WBC 7.53 (5.00-10.00) 10^3/uL RBC 3.66 L (4.50-6.00) 10^6/uL Hgb 11.0 L (13.0-17.0) g/dL Hct 33.8 L (40.0-52.0) % MCV 92.3 H (82.0-92.0) fL MCH 30.1 (27.0-31.0) pg MCHC 32.5 (32.0-36.0) g/dL RDW 13.3 (11.5-14.5) % Plt Count 63 L (150-400) 10^3/uL MPV 11.0 H (7.4-10.4) fL Immature Gran % (Auto) (0.0-5.0) % Neut % (Auto) (50.0-70.0) % Lymph % (Auto) (20.0-40.0) % [place] % (Auto) (2.0-8.0) % Eos % (Auto) (1.0-3.0) % Baso % (Auto) (0.0-1.0) % Neut # (Auto) (2.50-7.00) 10^3/uL Lymph # (Auto) (1.00-4.00) 10^3/uL [place] # (Auto) (0.10-0.80) 10^3/uL Eos # (Auto) (0.10-0.30) 10^3/uL Baso # (Auto) (0.00-0.10) 10^3/uL Immature Gran # (Auto) (0.00-0.50) 10^3/uL Add Manual Diff Yes Neutrophils % (Manual) 51 (50-70) % Lymphocytes % (Manual) 27 (20-40) % Monocytes % (Manual) 4 (2-8) % Eosinophils % (Manual) 9 H (1-3) % Blast Cells % 9.0 Platelet Estimate Decreased Poikilocytosis Few RBC Morph Comment See note APTT 53.2 H* D (22.8-31.4) SEC D-Dimer, Quantitative (<400) ng/mL Sodium (136-145) mmol/L Potassium (3.5-5.1) mmol/L Chloride (98-107) mmol/L Carbon Dioxide (21.0-32.0) mmol/L Anion Gap (5-15) mmol/L BUN (7-18) mg/dL Creatinine (0.51-1.17) mg/dL Est Cr Clr Drug Dosing mL/min Estimated GFR (MDRD) mL/min Glucose (70-140) mg/dL Lactic Acid (0.4-2.0) mmol/L Calcium (8.7-10.3) mg/dL Total Bilirubin (0.2-1.0) mg/dL AST (15-37) U/L ALT (14-63) U/L Alkaline Phosphatase (46-116) U/L Troponin I High Sens 1198.300 H* (0-76.000) pg/mL B-Natriuretic Peptide (0-100) pg/mL Total Protein (6.4-8.2) g/dL Albumin (3.40-5.00) g/dL Specimen Type Urine Color (YELLOW) Urine Appearance (CLEAR) Urine pH (5.0-9.0) Ur Specific [place] (1.005-1.030) Urine Protein (NEGATIVE) mg/dL Urine Glucose (UA) (NEGATIVE) mg/dL Urine Ketones (NEGATIVE) mg/dL Urine Occult Blood (NEGATIVE) Urine Nitrite (NEGATIVE) Urine Bilirubin (NEGATIVE) Urine Urobilinogen (0.2-1.0) E.U./dL Ur Leukocyte Esterase (NEGATIVE) Urine RBC (0-5) /HPF Urine WBC (0-5) /HPF Ur Epithelial Cells /LPF Urine Bacteria (NONE TO FEW) /HPF Urine Mucus (NEGATIVE) /LPF 09/04/21 09/04/21 Range/Units 07:28 07:28 WBC (5.00-10.00) 10^3/uL RBC (4.50-6.00) 10^6/uL Hgb (13.0-17.0) g/dL Hct (40.0-52.0) % MCV (82.0-92.0) fL MCH (27.0-31.0) pg MCHC (32.0-36.0) g/dL RDW (11.5-14.5) % Plt Count (150-400) 10^3/uL MPV (7.4-10.4) fL Immature Gran % (Auto) (0.0-5.0) % Neut % (Auto) (50.0-70.0) % Lymph % (Auto) (20.0-40.0) % [place] % (Auto) (2.0-8.0) % Eos % (Auto) (1.0-3.0) % Baso % (Auto) (0.0-1.0) % Neut # (Auto) (2.50-7.00) 10^3/uL Lymph # (Auto) (1.00-4.00) 10^3/uL [place] # (Auto) (0.10-0.80) 10^3/uL Eos # (Auto) (0.10-0.30) 10^3/uL Baso # (Auto) (0.00-0.10) 10^3/uL Immature Gran # (Auto) (0.00-0.50) 10^3/uL Add Manual Diff Neutrophils % (Manual) (50-70) % Lymphocytes % (Manual) (20-40) % Monocytes % (Manual) (2-8) % Eosinophils % (Manual) (1-3) % Blast Cells % Platelet Estimate Poikilocytosis RBC Morph Comment APTT (22.8-31.4) SEC D-Dimer, Quantitative 472 H (<400) ng/mL Sodium 134 L (136-145) mmol/L Potassium 4.3 (3.5-5.1) mmol/L Chloride 101 (98-107) mmol/L Carbon Dioxide 26.6 (21.0-32.0) mmol/L Anion Gap 10.7 (5-15) mmol/L BUN 17 (7-18) mg/dL Creatinine 0.99 (0.51-1.17) mg/dL Est Cr Clr Drug Dosing 63.48 mL/min Estimated GFR (MDRD) > 60 mL/min Glucose 90 (70-140) mg/dL Lactic Acid (0.4-2.0) mmol/L Calcium 8.3 L (8.7-10.3) mg/dL Total Bilirubin (0.2-1.0) mg/dL AST (15-37) U/L ALT (14-63) U/L Alkaline Phosphatase (46-116) U/L Troponin I High Sens 1295.900 H* (0-76.000) pg/mL B-Natriuretic Peptide 76 (0-100) pg/mL Total Protein (6.4-8.2) g/dL Albumin (3.40-5.00) g/dL Specimen Type Urine Color (YELLOW) Urine Appearance (CLEAR) Urine pH (5.0-9.0) Ur Specific [place] (1.005-1.030) Urine Protein (NEGATIVE) mg/dL Urine Glucose (UA) (NEGATIVE) mg/dL Urine Ketones (NEGATIVE) mg/dL Urine Occult Blood (NEGATIVE) Urine Nitrite (NEGATIVE) Urine Bilirubin (NEGATIVE) Urine Urobilinogen (0.2-1.0) E.U./dL Ur Leukocyte Esterase (NEGATIVE) Urine RBC (0-5) /HPF Urine WBC (0-5) /HPF Ur Epithelial Cells /LPF Urine Bacteria (NONE TO FEW) /HPF Urine Mucus (NEGATIVE) /LPF Med Orders - Current: Current Medications Aspirin (Aspirin 81 Mg Tab.Chew) [address] [facility] Last Admin: 09/04/21 11:39 Dose: 81 mg Documented by: Atorvastatin Calcium (Atorvastatin 40 Mg Tab) [address] [facility] Clopidogrel Bisulfate (Clopidogrel 75 Mg Tab) [address] [facility] Last Admin: 09/04/21 11:39 Dose: 75 mg Documented by: Melatonin (Melatonin 3 Mg Tab) 3 mg PO BEDTIME PRN PRN Reason: Insomnia Metoprolol Succinate (Metoprolol Succinate 25 Mg Tab.Er) 12.[address] [facility] Last Admin: 09/04/21 11:40 Dose: Not Given Documented by: Discontinued Medications Aspirin (Aspirin 81 Mg Tab.Chew) 324 mg PO ONETIME ONE Stop: 09/03/21 20:00 Last Admin: 09/03/21 20:07 Dose: 324 mg Documented by: Atorvastatin Calcium (Atorvastatin 40 Mg Tab) 40 mg PO ONETIME ONE Stop: 09/03/21 21:06 Last Admin: 09/03/21 21:30 Dose: 40 mg Documented by: Clopidogrel Bisulfate (Clopidogrel 75 Mg Tab) 300 mg PO ONETIME ONE Stop: 09/03/21 21:06 Last Admin: 09/03/21 21:30 Dose: 300 mg Documented by: Heparin Sodium (Porcine) (Heparin Sodium 5,000 Units/Ml Vial) 4,000 units IVPUSH .BOLUS ONE Stop: 09/03/21 18:30 Last Admin: 09/03/21 18:45 Dose: 4,000 units Documented by: Sodium Chloride (Normal Saline) 1,000 mls @ 999 mls/hr IV .BOLUS ONE Stop: 09/03/21 18:13 Last Admin: 09/03/21 18:05 Dose: 999 mls/hr Documented by: Heparin Sodium/Dextrose () 250 mls @ 7.893 mls/hr IV TITRATE ZAMZAM; Protocol Last Admin: 09/03/21 18:44 Dose: 12 units/kg/hr, 7.893 mls/hr Documented by: Heparin Sodium/Dextrose () 250 mls @ 7.756 mls/hr IV TITRATE ZAMZAM; Protocol Last Admin: 09/03/21 19:23 Dose: 12 units/kg/hr, 7.756 mls/hr Documented by: Metoprolol Succinate (Metoprolol Succinate 25 Mg Tab.Er) 12.5 mg PO ONETIME ONE Stop: 09/03/21 21:07 Last Admin: 09/03/21 21:30 Dose: 12.5 mg Documented by: Sodium Chloride (Sodium Chloride 0.9% 10 Ml Syringe) 10 ml FLUSH Q8HR PRN PRN Reason: keep vein open Last Admin: 09/03/21 18:06 Dose: 10 ml Documented by: Comments:: See H&P for exam data
[2021-09-04] MEDS ORDERED: Iopamidol 612 MG/ML 75 ML Bottle IV ONE (15:56)
[2021-09-04] MEDS ORDERED: Sodium Chloride 0.9% 100 ML IV SCH (16:00)
[2021-09-04] MEDS ORDERED: Iopamidol 755 Mg/ML 75 ML Bottle IVPUSH ONE (19:42)
[2021-09-04] MEDS ORDERED: atorvaSTATin 40 MG Tab PO SCH (21:00)
== END 2021-09-04 15:47 ==
LOC: KA.ED 16:58 → KA.MS 19:15 → UNDOADMOB 19:18
PROVIDERS: ADMIT Physician Assistant Medical; ATTEND Student in an Organized Health Care Education/Training Program
DX: R06.02 Shortness of breath (principal); R41.0 Disorientation, unspecified; I25.2 Old myocardial infarction; I69.951 Hemiplegia and hemiparesis following unspecified cerebrovascular disease affecting right dominant side; R77.8 Other specified abnormalities of plasma proteins; D69.6 Thrombocytopenia, unspecified; E78.5 Hyperlipidemia, unspecified; E87.1 Hypo-osmolality and hyponatremia; D50.9 Iron deficiency anemia, unspecified; R13.0 Aphagia; K58.9 Irritable bowel syndrome, unspecified; K57.30 Diverticulosis of large intestine without perforation or abscess without bleeding; I12.9 Hypertensive chronic kidney disease with stage 1 through stage 4 chronic kidney disease, or unspecified chronic kidney disease; N18.9 Chronic kidney disease, unspecified; N40.1 Benign prostatic hyperplasia with lower urinary tract symptoms; R35.1 Nocturia; N18.31 Chronic kidney disease, stage 3a; J31.0 Chronic rhinitis; Z86.73 Personal history of transient ischemic attack (TIA), and cerebral infarction without residual deficits; M25.512 Pain in left shoulder; Z79.899 Other long term (current) drug therapy; Z79.82 Long term (current) use of aspirin
CPT/HCPCS: 36415; 70450; 71045; 71275; 80048; 80053; 81001; 83605; 83880; 84484; 85025; 85379; 85730; 93010; 96365; 96366; 99284; 99285-25; A9270-GY; G0378; J1644; J7030; Q9967

== ENCOUNTER 2023-04-27 08:59 | Day surgery (SDC) | payer MEDICARE, OTHER ==
[2023-04-27] MEDS ORDERED: Sodium Chloride 0.9% 10 ML Syringe FLUSH PRN (09:00)
[2023-04-27] MEDS: Lactated Ringers 1,000 ML IV SCH (10:04)
[2023-04-27] MEDS ORDERED: Midazolam 1 MG/ML 2 ML SDV ONE (10:28)
[2023-04-27] MEDS ORDERED: Propofol 200 MG/20 ML SDV ONE (10:29)
== END 2023-04-27 14:10 | disposition home or self-care (01) ==
LOC: KA.SDS 08:59
PROVIDERS: ATTEND Family Medicine
DX: K52.831 Collagenous colitis (principal); K62.1 Rectal polyp; D64.9 Anemia, unspecified; K57.30 Diverticulosis of large intestine without perforation or abscess without bleeding; K64.8 Other hemorrhoids; I13.10 Hypertensive heart and chronic kidney disease without heart failure, with stage 1 through stage 4 chronic kidney disease, or unspecified chronic kidney disease; N18.31 Chronic kidney disease, stage 3a; F41.1 Generalized anxiety disorder; G31.84 Mild cognitive impairment of uncertain or unknown etiology; N40.1 Benign prostatic hyperplasia with lower urinary tract symptoms; R35.1 Nocturia; M19.041 Primary osteoarthritis, right hand; M19.042 Primary osteoarthritis, left hand; E78.2 Mixed hyperlipidemia; D50.0 Iron deficiency anemia secondary to blood loss (chronic); E53.8 Deficiency of other specified B group vitamins; Z86.73 Personal history of transient ischemic attack (TIA), and cerebral infarction without residual deficits; I25.10 Atherosclerotic heart disease of native coronary artery without angina pectoris; Z79.899 Other long term (current) drug therapy; Z79.82 Long term (current) use of aspirin; Z88.8 Allergy status to other drugs, medicaments and biological substances; I25.2 Old myocardial infarction
CPT/HCPCS: 00811; J2250; J2704; J7120

== ENCOUNTER 2025-06-11 10:50 | Emergency (ER) | payer MEDICARE, OTHER ==
[2025-06-11 11:07] LABS: BASOPHILS ABSOLUTE AUTO 0.01 10^3/uL (0.00-0.10); BASOPHILS PERCENT AUTO 0.4 % (0.0-1.0); EOSINOPHILS ABSOLUTE AUTO 0.07 10^3/uL (0.10-0.30); EOSINOPHILS PERCENT AUTO 2.6 % (1.0-3.0); IMMATURE GRAN ABSOLUTE AUTO 0.00 10^3/uL (0.00-0.04); IMMATURE GRAN PERCENT AUTO 0.0 % (0.0-0.4); LYMPHOCYTES ABSOLUTE AUTO 1.10 10^3/uL (1.00-4.00); LYMPHOCYTES PERCENT AUTO 40.9 % (20.0-40.0); MEAN PLATELET VOLUME 9.7 fL (7.4-10.4); MONOCYTES ABSOLUTE AUTO 0.41 10^3/uL (0.10-0.80); MONOCYTES PERCENT AUTO 15.2 % (2.0-8.0); NEUTROPHILS ABSOLUTE AUTO 1.10 10^3/uL (2.50-7.00); NEUTROPHILS PERCENT AUTO 40.9 % (50.0-70.0); PLATELET COUNT,PLT 231 10^3/uL (150-400); RED BLOOD CELL COUNT 3.96 10^6/uL (4.50-6.00); RED CELL DISTRIBUTION WIDTH 11.9 % (11.5-14.5); WHITE BLOOD CELL COUNT,WBC 2.69 10^3/uL (5.00-10.00)
[2025-06-11 11:24] LABS: ALANINE AMINOTRANSFERASE,ALT 24 U/L (14-63); ASPARTATE AMNIOTRANSFERASE,AST 30 U/L (15-37); BILIRUBIN TOTAL 0.4 mg/dL (0.2-1.0); BLOOD UREA NITROGEN,BUN 19 mg/dL (7-18); CARBON DIOXIDE,CO2 32.9 mmol/L (21.0-32.0); CHLORIDE,CL 99 mmol/L (98-107); CREATININE 0.87 mg/dL (0.51-1.17); GLUCOSE RANDOM 97 mg/dL (70-140); POTASSIUM,K 4.7 mmol/L (3.5-5.1); PROTEIN TOTAL,TP 7.1 g/dL (6.4-8.2); SODIUM,NA 136 mmol/L (136-145)
[2025-06-11 11:29] LABS: ESTIMATED GFR 91 mL/min (>=60)
== END 2025-06-11 13:55 | disposition home or self-care (01) ==
LOC: KA.ED 10:50
DX: J32.9 Chronic sinusitis, unspecified (principal); R79.89 Other specified abnormal findings of blood chemistry; I10 Essential (primary) hypertension; E78.00 Pure hypercholesterolemia, unspecified; Z88.8 Allergy status to other drugs, medicaments and biological substances; Z79.82 Long term (current) use of aspirin; Z79.899 Other long term (current) drug therapy
CPT/HCPCS: 36415; 71045; 80053; 83605; 83735; 84484; 85025; 85379; 86140; 87428-QW; 96360; 99285-25; A9270-GY; J7030

== ENCOUNTER 2025-07-01 11:26 | Emergency (ER) | payer MEDICARE, OTHER ==
[2025-07-01] MEDS ORDERED: Sodium Chloride 0.9% 10 ML Syringe FLUSH PRN (11:32)
[2025-07-01 11:38] LABS: BASOPHILS ABSOLUTE AUTO 0.02 10^3/uL (0.00-0.10); BASOPHILS PERCENT AUTO 0.6 % (0.0-1.0); EOSINOPHILS ABSOLUTE AUTO 0.02 10^3/uL (0.10-0.30); EOSINOPHILS PERCENT AUTO 0.6 % (1.0-3.0); IMMATURE GRAN ABSOLUTE AUTO 0.00 10^3/uL (0.00-0.04); IMMATURE GRAN PERCENT AUTO 0.0 % (0.0-0.4); LYMPHOCYTES ABSOLUTE AUTO 1.22 10^3/uL (1.00-4.00); LYMPHOCYTES PERCENT AUTO 38.6 % (20.0-40.0); MEAN PLATELET VOLUME 9.7 fL (7.4-10.4); MONOCYTES ABSOLUTE AUTO 0.44 10^3/uL (0.10-0.80); MONOCYTES PERCENT AUTO 13.9 % (2.0-8.0); NEUTROPHILS ABSOLUTE AUTO 1.46 10^3/uL (2.50-7.00); NEUTROPHILS PERCENT AUTO 46.3 % (50.0-70.0); PLATELET COUNT,PLT 247 10^3/uL (150-400); RED BLOOD CELL COUNT 3.70 10^6/uL (4.50-6.00); RED CELL DISTRIBUTION WIDTH 12.1 % (11.5-14.5); WHITE BLOOD CELL COUNT,WBC 3.16 10^3/uL (5.00-10.00)
[2025-07-01 11:55] LABS: ALANINE AMINOTRANSFERASE,ALT 22 U/L (14-63); ASPARTATE AMNIOTRANSFERASE,AST 28 U/L (15-37); BILIRUBIN TOTAL 0.3 mg/dL (0.2-1.0); BLOOD UREA NITROGEN,BUN 17 mg/dL (7-18); CARBON DIOXIDE,CO2 32.3 mmol/L (21.0-32.0); CHLORIDE,CL 99 mmol/L (98-107); CREATININE 0.86 mg/dL (0.51-1.17); ESTIMATED GFR 91 mL/min (>=60); GLUCOSE RANDOM 102 mg/dL (70-140); POTASSIUM,K 4.3 mmol/L (3.5-5.1); PROTEIN TOTAL,TP 6.4 g/dL (6.4-8.2); SODIUM,NA 136 mmol/L (136-145)
[2025-07-01 12:03] LABS: APPEARANCE,URINE CLEAR (CLEAR); GLUCOSE,URINE NEGATIVE (NEGATIVE); OCCULT BLOOD,URINE NEGATIVE (NEGATIVE)
== END 2025-07-01 13:22 | disposition home or self-care (01) ==
LOC: KA.ED 11:26
DX: J34.2 Deviated nasal septum (principal); R09.81 Nasal congestion; R53.1 Weakness; D64.9 Anemia, unspecified; D72.819 Decreased white blood cell count, unspecified; I10 Essential (primary) hypertension; M19.90 Unspecified osteoarthritis, unspecified site; E78.00 Pure hypercholesterolemia, unspecified; Z88.8 Allergy status to other drugs, medicaments and biological substances; Z79.82 Long term (current) use of aspirin; Z79.899 Other long term (current) drug therapy
CPT/HCPCS: 80053; 81003; 83605; 84484; 85025; 86140; 99285